=== PATIENT | male | born 1965 | race Two or more races ===

== ENCOUNTER → 2020-09-25 08:40 | Outpatient (BNVA) | payer OTHER, SELFPAY | PROVIDERS: PCP Internal Medicine; Referring Provider Internal Medicine; Visit Provider Physician Assistant | DX: E66.3 Overweight (principal); K90.49 Malabsorption due to intolerance, not elsewhere classified; Z98.84 Bariatric surgery status; Z79.899 Other long term (current) drug therapy; Z68.27 Body mass index [BMI] 27.0-27.9, adult ==

== ENCOUNTER → 2020-10-10 10:44 | Outpatient (BNV) | payer OTHER, SELFPAY | PROVIDERS: PCP Internal Medicine; Visit Provider Internal Medicine Medical Oncology | DX: D61.818 Other pancytopenia (principal) | CPT/HCPCS: 99213; 99214; 99443 ==

== ENCOUNTER → 2020-10-24 08:04 | Outpatient (BNVA) | payer OTHER, SELFPAY | PROVIDERS: Visit Provider Dietitian, Registered | DX: Z76.89 Persons encountering health services in other specified circumstances (principal) ==

== ENCOUNTER 2020-10-31 15:36 | Outpatient (REF) | payer OTHER, SELFPAY ==
[2020-10-31 16:20] LABS: MANUAL DIFF FLAG NO
[2020-10-31 16:31] LABS: Basophils Percent Auto 0.3 % (0-2); Eosinophils Absolute Auto 0.1 X10*3/uL (0.0-0.4); Hematocrit 39.8 % (42-52); Hemoglobin 13.7 g/dl (14.0-18.0); Imm Gran Abs Auto 0.01 X10*3/uL (0.00-0.03); Imm Gran Pct Auto 0.3 % (0.0-0.4); Lymphocytes Absolute Auto 1.2 X10*3/uL (1.2-4.9); Lymphocytes Percent Auto 35.8 % (20-40); Mean Corpuscular HGB Conc 34.4 g/dl (31.0-36.0); Mean Corpuscular Hemoglobin 28.6 pg (27.0-33.0); Mean Corpuscular Volume 83.1 fL (80-98); Mean Platelet Volume 10.2 fL (9.4-12.4); Monocytes Absolute Auto 0.4 X10*3/uL (0.1-1.2); Neutrophils Absolute Auto 1.6 X10*3/uL (2.0-8.3); Neutrophils Percent Auto 48.6 % (45-73); Platelet Count 117 X10*3/uL (160-400); Red Blood Count 4.79 X10*6/uL (4.60-5.80); Red Cell Distribution Width 14.1 % (11.0-16.0); White Blood Count 3.3 X10*3/uL (4.8-10.8)
[2020-10-31 16:56] LABS: Alanine Aminotransferase 24 U/L (0-40); Albumin Level 4.2 g/dL (3.5-5.0); Alkaline Phosphatase 67 U/L (39-117); Anion Gap 12 (12-20); Aspartate Amino Transferase 28 U/L (5-37); Bilirubin Total 1.2 mg/dL (0.0-1.0); Blood Urea Nitrogen 39 mg/dL (9-16); Calcium 9.4 mg/dL (8.4-10.2); Carbon Dioxide 28 mmol/L (22-29); Chloride 102 mmol/L (96-108); Estimated Glomerular Filt Rate > 60; Glucose Random 75 mg/dL (60-115); Potassium 4.1 mmol/l (3.3-5.1); Sodium 138 mmol/L (135-145); Total Protein 7.3 g/dL (6.5-8.0)
[2020-10-31 17:00] LABS: Glucose Urine UA NEG (NEG); Leukocyte Esterase Urine NEG (NEG); Nitrite Urine NEG (NEG); PH 5.5 (5.0-8.0); Urine Blood NEG (NEG); Urine Ketones NEG (NEG); Urine Protein NEG (NEG-TRACE)
[2020-10-31 17:02] LABS: Appearance Urine CLEAR; Color Urine YELLOW
[2020-10-31 17:29] LABS: Erythrocyte Sedimentation Rate 10 MM/HR (0-15)
[2020-11-01 12:12] LABS: Complement C3 112 mg/dL (82-185)
[2020-11-02 13:27] LABS: Anti DNA DS Antibody 6 IU/mL
== END 2020-10-31 15:37 | disposition home or self-care (01) ==
LOC: HO.LAB 15:36
PROVIDERS: PCP Internal Medicine; Visit Provider Student in an Organized Health Care Education/Training Program
DX: M32.9 Systemic lupus erythematosus, unspecified (principal); R76.8 Other specified abnormal immunological findings in serum
CPT/HCPCS: 36415; 80053; 81003; 85025; 85652; 86140; 86160; 86225

== ENCOUNTER → 2020-11-01 15:12 | Outpatient (BNVA) | payer OTHER, SELFPAY | PROVIDERS: PCP Internal Medicine; Visit Provider Student in an Organized Health Care Education/Training Program | DX: Z13.89 Encounter for screening for other disorder (principal) ==

== ENCOUNTER 2020-12-08 10:21 | Outpatient (REF) | payer OTHER, SELFPAY ==
[2020-12-08 10:41] LABS: COVID-19 Test Negative (Negative)
== END 2020-12-08 10:22 | disposition home or self-care (01) ==
LOC: HO.EMPCOV 10:21
PROVIDERS: Visit Provider Internal Medicine
DX: Z20.828 Contact with and (suspected) exposure to other viral communicable diseases (principal)
CPT/HCPCS: 36415; 87635; C9803

== ENCOUNTER → 2020-12-25 10:09 | Outpatient (BNVA) | payer OTHER, SELFPAY | PROVIDERS: PCP Internal Medicine; Visit Provider Urology ==

== ENCOUNTER 2021-02-01 14:30 | Outpatient (REF) | payer OTHER, SELFPAY ==
[2021-02-01 15:16] LABS: Glucose Urine UA NEG (NEG); Leukocyte Esterase Urine NEG (NEG); Nitrite Urine NEG (NEG); PH 5.5 (5.0-8.0); Urine Blood NEG (NEG); Urine Ketones NEG (NEG); Urine Protein NEG (NEG-TRACE)
[2021-02-01 15:18] LABS: Hemoglobin 14.5 g/dl (14.0-18.0); MANUAL DIFF FLAG SCAN; PLT CLUMP 1; Red Cell Distribution Width 13.9 % (11.0-16.0); SCAN SMEAR FLAG 1
[2021-02-01 15:20] LABS: Basophils Percent Auto 0.6 % (0-2); Eosinophils Percent Auto 1.3 % (0-4); Hematocrit 42.1 % (42-52); Lymphocytes Absolute Auto 1.2 X10*3/uL (1.2-4.9); Lymphocytes Percent Auto 36.7 % (20-40); Mean Corpuscular HGB Conc 34.4 g/dl (31.0-36.0); Mean Corpuscular Hemoglobin 28.3 pg (27.0-33.0); Mean Corpuscular Volume 82.2 fL (80-98); Mean Platelet Volume 10.8 fL (9.4-12.4); Monocytes Absolute Auto 0.4 X10*3/uL (0.1-1.2); Monocytes Percent Auto 11.1 % (2-11); Neutrophils Absolute Auto 1.6 X10*3/uL (2.0-8.3); Neutrophils Percent Auto 50.3 % (45-73); Platelet Count 126 X10*3/uL (160-400); Red Blood Count 5.12 X10*6/uL (4.60-5.80); White Blood Count 3.2 X10*3/uL (4.8-10.8)
[2021-02-01 15:20] LABS: Appearance Urine CLEAR; Color Urine YELLOW
[2021-02-01 15:30] LABS: Bacteria Urine TRACE /LPF; RBC Urine 0 /HPF (0); Squamous Epithelial Cell Urine TRACE /LPF; WBC Urine 0 /HPF (0-4)
[2021-02-01 16:06] LABS: Alanine Aminotransferase 22 U/L (0-40); Albumin Level 4.5 g/dL (3.5-5.0); Alkaline Phosphatase 74 U/L (39-117); Anion Gap 13 (12-20); Aspartate Amino Transferase 28 U/L (5-37); Bilirubin Total 1.8 mg/dL (0.0-1.0); Blood Urea Nitrogen 28 mg/dL (9-16); C Reactive Protein 0.14 mg/dL (< or = 0.50); Calcium 9.9 mg/dL (8.4-10.2); Carbon Dioxide 32 mmol/L (22-29); Chloride 97 mmol/L (96-108); Estimated Glomerular Filt Rate > 60; Glucose Random 73 mg/dL (60-115); Potassium 4.5 mmol/L (3.3-5.1); Sodium 137 mmol/L (135-145); Total Protein 7.8 g/dL (6.5-8.0)
[2021-02-01 16:21] LABS: Erythrocyte Sedimentation Rate 11 MM/HR (0-15)
[2021-02-02 12:17] LABS: Complement C3 119 mg/dL (82-185)
[2021-02-02 12:42] LABS: Anti DNA DS Antibody 6 IU/mL
== END 2021-02-01 14:31 | disposition home or self-care (01) ==
LOC: HO.LAB 14:30
PROVIDERS: PCP Internal Medicine; Visit Provider Student in an Organized Health Care Education/Training Program
DX: M32.9 Systemic lupus erythematosus, unspecified (principal)
CPT/HCPCS: 36415; 80053; 81001; 85025; 85652; 86140; 86160; 86225

== ENCOUNTER → 2021-02-02 15:10 | Outpatient (BNVA) | payer OTHER, SELFPAY | PROVIDERS: Visit Provider Student in an Organized Health Care Education/Training Program ==

== ENCOUNTER 2021-04-10 13:54 | Outpatient (REF) | payer OTHER, SELFPAY ==
[2021-04-10 14:18] LABS: COVID-19 Test Negative (Negative)
== END 2021-04-10 13:55 | disposition home or self-care (01) ==
LOC: HO.EMPCOV 13:54
PROVIDERS: Visit Provider Internal Medicine
DX: Z20.822 Contact with and (suspected) exposure to COVID-19 (principal)
CPT/HCPCS: 36415; 87635; C9803

== ENCOUNTER 2021-05-02 06:42 | Outpatient (REF) | payer OTHER, SELFPAY ==
[2021-05-02 07:56] LABS: Basophils Percent Auto 0.5 % (0-2); Hemoglobin 14.4 g/dl (14.0-18.0); MANUAL DIFF FLAG SCAN; PLT CLUMP 1; SCAN SMEAR FLAG 1
[2021-05-02 07:59] LABS: Eosinophils Absolute Auto 0.1 X10*3/uL (0.0-0.4); Eosinophils Percent Auto 4.6 % (0-4); Hematocrit 42.1 % (42-52); Lymphocytes Absolute Auto 0.9 X10*3/uL (1.2-4.9); Lymphocytes Percent Auto 40.8 % (20-40); Mean Corpuscular HGB Conc 34.2 g/dl (31.0-36.0); Mean Corpuscular Hemoglobin 28.6 pg (27.0-33.0); Mean Corpuscular Volume 83.5 fL (80-98); Mean Platelet Volume 10.8 fL (9.4-12.4); Monocytes Absolute Auto 0.3 X10*3/uL (0.1-1.2); Monocytes Percent Auto 11.9 % (2-11); Neutrophils Absolute Auto 0.9 X10*3/uL (2.0-8.3); Neutrophils Percent Auto 42.2 % (45-73); Platelet Count 115 X10*3/uL (160-400); Red Blood Count 5.04 X10*6/uL (4.60-5.80); Red Cell Distribution Width 14.2 % (11.0-16.0)
[2021-05-02 08:13] LABS: White Blood Count 2.2 X10*3/uL (4.8-10.8)
[2021-05-02 08:17] LABS: Estimated Average Glucose 85 mg/dL; Hemoglobin A1c % 4.6 %
[2021-05-02 08:45] LABS: Alanine Aminotransferase 18 U/L (0-40); Albumin Level 4.3 g/dL (3.5-5.0); Alkaline Phosphatase 72 U/L (39-117); Anion Gap 12 (12-20); Aspartate Amino Transferase 28 U/L (5-37); Bilirubin Total 1.8 mg/dL (0.0-1.0); Blood Urea Nitrogen 21 mg/dL (9-16); C Reactive Protein 0.11 mg/dL (< or = 0.50); Calcium 10.3 mg/dL (8.4-10.2); Carbon Dioxide 30 mmol/L (22-29); Chloride 102 mmol/L (96-108); Cholesterol 151 mg/dL; Estimated Glomerular Filt Rate > 60; Glucose Random 70 mg/dL (60-115); HDL Cholesterol 47 mg/dL; Iron 89 mcg/dL (45-160); LDL Cholesterol Calculated 90 mg/dl; Percent Iron Saturation 29 % (15-50); Potassium 4.4 mmol/L (3.3-5.1); Sodium 140 mmol/L (135-145); Total Iron Binding Capacity 310 mcg/dL (228-428); Total Protein 7.4 g/dL (6.5-8.0); Triglycerides 70 mg/dL; Unsaturated Iron Binding 221 ug/dL
[2021-05-02 09:10] LABS: Ferritin 90 ng/mL (20-250); TSH reflex Free T4 0.75 uIU/mL (0.32-4.0); Vitamin D 25-OH Total 55.7 ng/mL (>30)
[2021-05-02 10:00] LABS: SLIDE REVIEW VERIFIED
[2021-05-02 10:06] LABS: Folate 16.4 ng/mL (> or = 4.0); Vitamin B12 1038 pg/mL (200-900)
[2021-05-03 13:27] LABS: PTHI 32 pg/mL (14-64)
[2021-05-03 17:51] LABS: Insulin Level Total 15.9 uIU/mL
[2021-05-04 23:01] LABS: Zinc 74 mcg/dL (60-130)
[2021-05-07 03:47] LABS: Vitamin A 42 mcg/dL (38-98)
[2021-05-07 06:11] LABS: Vitamin B1 7 nmol/L (8-30)
== END 2021-05-02 06:43 | disposition home or self-care (01) ==
LOC: HO.LAB 06:42
PROVIDERS: PCP Internal Medicine; Visit Provider Physician Assistant
DX: Z98.84 Bariatric surgery status (principal)
CPT/HCPCS: 36415; 80053; 80061; 82306; 82607; 82728; 82746; 83036; 83525; 83540; 83970; 84425; 84443; 84590; 84630; 85025; 86140

== ENCOUNTER → 2021-05-03 08:14 | Outpatient (BNVA) | payer OTHER, SELFPAY | PROVIDERS: PCP Internal Medicine; Visit Provider Physician Assistant | DX: Z98.84 Bariatric surgery status (principal) ==

== ENCOUNTER 2021-06-11 13:06 | Outpatient (REF) | payer OTHER, SELFPAY ==
[2021-06-11 14:12] LABS: MANUAL DIFF FLAG NO
[2021-06-11 14:16] LABS: Basophils Percent Auto 0.4 % (0-2); Eosinophils Percent Auto 0.8 % (0-4); Hemoglobin 13.8 g/dl (14.0-18.0); Imm Gran Abs Auto 0.01 X10*3/uL (0.00-0.03); Imm Gran Pct Auto 0.4 % (0.0-0.4); Lymphocytes Absolute Auto 0.9 X10*3/uL (1.2-4.9); Lymphocytes Percent Auto 35.5 % (20-40); Mean Corpuscular HGB Conc 34.5 g/dl (31.0-36.0); Mean Corpuscular Hemoglobin 28.8 pg (27.0-33.0); Mean Corpuscular Volume 83.3 fL (80-98); Mean Platelet Volume 9.7 fL (9.4-12.4); Monocytes Absolute Auto 0.3 X10*3/uL (0.1-1.2); Monocytes Percent Auto 11.3 % (2-11); Neutrophils Absolute Auto 1.4 X10*3/uL (2.0-8.3); Neutrophils Percent Auto 51.6 % (45-73); Platelet Count 131 X10*3/uL (160-400); Red Cell Distribution Width 14.3 % (11.0-16.0); White Blood Count 2.7 X10*3/uL (4.8-10.8)
[2021-06-11 14:35] LABS: Alanine Aminotransferase 14 U/L (0-40); Albumin Level 4.3 g/dL (3.5-5.0); Alkaline Phosphatase 83 U/L (39-117); Anion Gap 12 (12-20); Aspartate Amino Transferase 21 U/L (5-37); Bilirubin Total 1.5 mg/dL (0.0-1.0); Blood Urea Nitrogen 23 mg/dL (9-16); C Reactive Protein 0.08 mg/dL (< or = 0.50); Calcium 9.9 mg/dL (8.4-10.2); Carbon Dioxide 28 mmol/L (22-29); Chloride 102 mmol/L (96-108); Estimated Glomerular Filt Rate > 60; Glucose Random 86 mg/dL (60-115); Potassium 4.7 mmol/L (3.3-5.1); Sodium 137 mmol/L (135-145); Total Protein 7.6 g/dL (6.5-8.0)
[2021-06-11 14:49] LABS: Glucose Urine UA NEG (NEG); Leukocyte Esterase Urine NEG (NEG); Nitrite Urine NEG (NEG); PH 5.5 (5.0-8.0); Urine Blood NEG (NEG); Urine Ketones NEG (NEG); Urine Protein NEG (NEG-TRACE)
[2021-06-11 14:52] LABS: Appearance Urine CLEAR; Color Urine YELLOW; Erythrocyte Sedimentation Rate 11 MM/HR (0-15)
[2021-06-11 15:45] LABS: RBC Urine 0 /HPF (0); WBC Urine 0 /HPF (0-4)
[2021-06-12 14:41] LABS: Complement C3 81 mg/dL (82-185)
[2021-06-13 14:56] LABS: Anti DNA DS Antibody 6 IU/mL
== END 2021-06-11 13:07 | disposition home or self-care (01) ==
LOC: HO.LAB 13:06
PROVIDERS: PCP Internal Medicine; Visit Provider Student in an Organized Health Care Education/Training Program
DX: M32.9 Systemic lupus erythematosus, unspecified (principal)
CPT/HCPCS: 36415; 80053; 81001; 85025; 85652; 86140; 86160; 86225

== ENCOUNTER → 2021-06-14 15:58 | Outpatient (BNVA) | payer OTHER, SELFPAY | PROVIDERS: PCP Internal Medicine; Visit Provider Student in an Organized Health Care Education/Training Program ==

== ENCOUNTER 2021-10-15 07:12 | Outpatient (REF) | payer OTHER, SELFPAY ==
[2021-10-15 07:30] LABS: MANUAL DIFF FLAG NO
[2021-10-15 08:05] LABS: Basophils Percent Auto 0.4 % (0-2); Eosinophils Percent Auto 1.5 % (0-4); Hematocrit 42.1 % (42.0-52.0); Hemoglobin 14.3 g/dl (14.0-18.0); Lymphocytes Absolute Auto 0.9 X10*3/uL (1.2-4.9); Lymphocytes Percent Auto 35.5 % (20-40); Mean Corpuscular Hemoglobin 27.9 pg (27.0-33.0); Mean Corpuscular Volume 82.2 fL (80.0-98.0); Monocytes Absolute Auto 0.3 X10*3/uL (0.1-1.2); Monocytes Percent Auto 12.8 % (2-11); Neutrophils Absolute Auto 1.3 x10*3/uL (2.0-8.3); Neutrophils Percent Auto 49.8 % (45-73); Platelet Count 131 X10*3/uL (160-400); Red Blood Count 5.12 X10*6/uL (4.60-5.80); Red Cell Distribution Width 13.4 % (11.0-16.0); White Blood Count 2.7 X10*3/uL (4.8-10.8)
[2021-10-15 08:34] LABS: Alanine Aminotransferase 13 U/L (0-40); Albumin Level 4.2 g/dL (3.5-5.0); Alkaline Phosphatase 73 U/L (39-117); Anion Gap 9 (12-20); Aspartate Amino Transferase 20 U/L (5-37); Bilirubin Total 1.3 mg/dL (0.0-1.0); Blood Urea Nitrogen 33 mg/dL (9-16); Calcium 9.6 mg/dL (8.4-10.2); Carbon Dioxide 31 mmol/L (22-29); Chloride 101 mmol/L (96-108); Cholesterol 142 mg/dL; Estimated Glomerular Filt Rate > 60; Glucose Random 55 mg/dL (60-115); HDL Cholesterol 46 mg/dL; LDL Cholesterol Calculated 80 mg/dl; Potassium 4.5 mmol/L (3.3-5.1); Sodium 136 mmol/L (135-145); Total Protein 7.3 g/dL (6.5-8.0); Triglycerides 80 mg/dL
[2021-10-15 08:46] LABS: Appearance Urine CLEAR; Color Urine YELLOW; Glucose Urine UA NEG (NEG); Leukocyte Esterase Urine TRACE (NEG); Nitrite Urine NEG (NEG); PH 5.5 (5.0-8.0); Urine Blood NEG (NEG); Urine Ketones NEG (NEG); Urine Protein NEG (NEG-TRACE)
[2021-10-15 08:57] LABS: RBC Urine 0 /HPF (0); Squamous Epithelial Cell Urine TRACE /LPF; WBC Urine 0-2 /HPF (0-4)
[2021-10-15 09:05] LABS: Erythrocyte Sedimentation Rate 8 MM/HR (0-15)
[2021-10-16 11:45] LABS: Complement C3 114 mg/dL (82-185)
[2021-10-20 09:07] LABS: Anti DNA DS Antibody 7 IU/mL
[2021-10-20 13:31] LABS: Vitamin D 25-OH, D2 9 ng/mL; Vitamin D 25-OH, D3 30 ng/mL; Vitamin D 25-OH, Total 39 ng/mL (30-100)
== END 2021-10-15 07:13 | disposition home or self-care (01) ==
LOC: HO.LAB 07:12
PROVIDERS: Student in an Organized Health Care Education/Training Program; PCP Internal Medicine; Visit Provider Internal Medicine Medical Oncology
DX: M32.9 Systemic lupus erythematosus, unspecified (principal); E78.5 Hyperlipidemia, unspecified; E55.9 Vitamin D deficiency, unspecified
CPT/HCPCS: 36415; 80053; 80061; 81001; 82306; 85025; 85652; 86140; 86160; 86225

== ENCOUNTER 2021-10-16 09:36 | Outpatient (REF) | payer OTHER, SELFPAY ==
[2021-10-16 11:27] LABS: Alanine Aminotransferase 14 U/L (0-40); Albumin Level 4.1 g/dL (3.5-5.0); Alkaline Phosphatase 74 U/L (39-117); Anion Gap 11 (12-20); Aspartate Amino Transferase 21 U/L (5-37); Bilirubin Total 1.2 mg/dL (0.0-1.0); Blood Urea Nitrogen 27 mg/dL (9-16); Calcium 9.4 mg/dL (8.4-10.2); Carbon Dioxide 31 mmol/L (22-29); Chloride 100 mmol/L (96-108); Estimated Glomerular Filt Rate > 60; Glucose Fasting 66 mg/dL (60-99); Potassium 4.7 mmol/L (3.3-5.1); Sodium 137 mmol/L (135-145); Total Protein 7.3 g/dL (6.5-8.0)
== END 2021-10-16 09:37 | disposition home or self-care (01) ==
LOC: HO.LAB 09:36
PROVIDERS: PCP Internal Medicine; Visit Provider Internal Medicine
DX: E16.2 Hypoglycemia, unspecified (principal); R82.998 Other abnormal findings in urine
CPT/HCPCS: 36415; 80053; 87086

== ENCOUNTER 2022-04-16 13:40 | Outpatient (REF) | payer OTHER, SELFPAY ==
[2022-04-16 14:34] LABS: Baso%MD 0.3 %; Eos%MD 1.7 %; Hematocrit 38.2 % (42.0-52.0); Hemoglobin 13.3 g/dl (14.0-18.0); IG%MD 0.3 %; Mean Corpuscular HGB Conc 34.8 g/dl (31.0-36.0); Mean Corpuscular Hemoglobin 27.9 pg (27.0-33.0); Mean Corpuscular Volume 80.3 fL (80.0-98.0); Mean Platelet Volume 9.6 fL (9.4-12.4); Mono%MD 14.1 %; Neut%MD 45.6 %; Platelet Count 115 X10*3/uL (160-400); Red Blood Count 4.76 X10*6/uL (4.60-5.80); Red Cell Distribution Width 14.8 % (11.0-16.0); White Blood Count 3.6 X10*3/uL (4.8-10.8)
[2022-04-16 14:59] LABS: Alanine Aminotransferase 19 U/L (0-40); Albumin Level 4.1 g/dL (3.5-5.0); Alkaline Phosphatase 65 U/L (39-117); Anion Gap 10 (12-20); Aspartate Amino Transferase 25 U/L (5-37); Blood Urea Nitrogen 25 mg/dL (9-16); Calcium 9.1 mg/dL (8.4-10.2); Carbon Dioxide 28 mmol/L (22-29); Chloride 105 mmol/L (96-108); Estimated Glomerular Filt Rate > 60; Glucose Random 65 mg/dL (60-115); Potassium 4.5 mmol/L (3.3-5.1); Sodium 138 mmol/L (135-145); Total Protein 7.4 g/dL (6.5-8.0)
[2022-04-16 16:13] LABS: Band Neutrophils Percent 3 % (3-5); Lymphocytes Absolute Manual 1.3 X10*3/uL (1.2-4.9); Lymphocytes Percent Manual 36 % (20-40); Monocytes Absolute Manual 0.5 X10*3/uL (0.1-1.2); Monocytes Percent Manual 13 % (2-11); Neutrophils Absolute Manual 1.8 X10*3/uL (2.0-8.3); Neutrophils Percent Manual 48 % (45-73)
[2022-04-16 16:17] LABS: Giant Platelet PRESENT; Platelet Estimate SLIGHTLY DECREASED (NORMAL); Platelet Morphology Comment NOTED; RBC Morphology NORMAL
== END 2022-04-16 13:41 | disposition home or self-care (01) ==
LOC: HO.LAB 13:40
PROVIDERS: PCP Internal Medicine; Visit Provider Internal Medicine Medical Oncology
DX: D61.818 Other pancytopenia (principal)
CPT/HCPCS: 36415; 80053; 85007; 85027

== ENCOUNTER → 2022-08-28 14:16 | Outpatient (BNVA) | payer OTHER, SELFPAY | PROVIDERS: PCP Internal Medicine; Visit Provider Urology | DX: N40.1 Benign prostatic hyperplasia with lower urinary tract symptoms (principal); R39.12 Poor urinary stream | CPT/HCPCS: 51798 ==

== ENCOUNTER 2022-11-21 07:58 | Outpatient (REF) | payer OTHER, SELFPAY ==
[2022-11-21 09:36] LABS: Alanine Aminotransferase 13 U/L (0-40); Albumin Level 4.1 g/dL (3.5-5.0); Alkaline Phosphatase 67 U/L (39-117); Anion Gap 12 (12-20); Aspartate Amino Transferase 22 U/L (5-37); Bilirubin Total 1.1 mg/dL (0.0-1.0); Blood Urea Nitrogen 19 mg/dL (9-16); Calcium 9.3 mg/dL (8.4-10.2); Carbon Dioxide 30 mmol/L (22-29); Chloride 102 mmol/L (96-108); Cholesterol 146 mg/dL; Estimated Glomerular Filt Rate > 60; Glucose Fasting 73 mg/dL (60-99); HDL Cholesterol 46 mg/dL; LDL Cholesterol Calculated 93 mg/dl; Potassium 4.5 mmol/L (3.3-5.1); Sodium 139 mmol/L (135-145); Total Protein 6.9 g/dL (6.5-8.0); Triglycerides 38 mg/dL
== END 2022-11-21 07:59 | disposition home or self-care (01) ==
LOC: HO.LAB 07:58
PROVIDERS: PCP Internal Medicine; Visit Provider Internal Medicine
DX: M32.9 Systemic lupus erythematosus, unspecified (principal); E78.5 Hyperlipidemia, unspecified
CPT/HCPCS: 36415; 80053; 80061

== ENCOUNTER → 2022-11-27 13:35 | Outpatient (BNVA) | payer OTHER, SELFPAY | PROVIDERS: PCP Internal Medicine; Visit Provider Urology | DX: N52.9 Male erectile dysfunction, unspecified (principal); N40.1 Benign prostatic hyperplasia with lower urinary tract symptoms | CPT/HCPCS: 51798 ==

== ENCOUNTER 2022-12-06 16:38 | Outpatient (REF) | payer OTHER, SELFPAY ==
[2022-12-06 18:07] LABS: Vitamin D 25-OH Total 45.4 ng/mL (>30)
[2022-12-06 18:25] LABS: Folate 9.4 ng/mL (> or = 4.0)
[2022-12-06 18:40] LABS: Vitamin B12 > 2000 pg/mL (200-900)
[2022-12-11 16:42] LABS: Vitamin A 48 mcg/dL (38-98)
[2022-12-13 16:03] LABS: Testosterone, Free 71.1 pg/mL (35.0-155.0); Testosterone, Total 846 ng/dL (250-1100)
== END 2022-12-06 16:39 | disposition home or self-care (01) ==
LOC: HO.LAB 16:38
PROVIDERS: PCP Internal Medicine; Visit Provider Internal Medicine
DX: E55.9 Vitamin D deficiency, unspecified (principal); E29.1 Testicular hypofunction; E53.8 Deficiency of other specified B group vitamins; E50.9 Vitamin A deficiency, unspecified
CPT/HCPCS: 36415; 82306; 82607; 82746; 84402; 84403; 84425; 84590

== ENCOUNTER 2022-12-07 09:22 | Outpatient (REF) | payer OTHER, SELFPAY ==
[2022-12-07 10:50] LABS: Prostate Specific Antigen 0.29 ng/mL (<0.05-4.0)
[2022-12-11 15:44] LABS: Vitamin B1 7 nmol/L (8-30)
[2022-12-15 16:28] LABS: Testosterone, Total 907 ng/dL (250-1100)
== END 2022-12-07 09:23 | disposition home or self-care (01) ==
LOC: HO.LAB 09:22
PROVIDERS: Urology; Visit Provider Internal Medicine
DX: Z12.5 Encounter for screening for malignant neoplasm of prostate (principal); E51.9 Thiamine deficiency, unspecified; N52.9 Male erectile dysfunction, unspecified
CPT/HCPCS: 36415; 84153; 84403; 84425

== ENCOUNTER → 2023-02-26 08:45 | Outpatient (BNVA) | payer OTHER, SELFPAY | PROVIDERS: PCP Internal Medicine; Visit Provider Urology | DX: N40.1 Benign prostatic hyperplasia with lower urinary tract symptoms (principal); N52.9 Male erectile dysfunction, unspecified | CPT/HCPCS: 51798 ==

== ENCOUNTER 2023-05-07 08:07 | Emergency (ER) | payer OTHER, SELFPAY ==
--- NOTE | ~2023-05-07 | XR_ITS ---
EXAMINATION: XR SHOULDER, RIGHT CLINICAL INFORMATION: Fall onto right shoulder COMPARISON: Right shoulder 08/21/2018 TECHNIQUE: Four views of the right shoulder. FINDINGS: There is some new cystic changes in the greater trochanter compared to the 2018 study which may be due to chronic bursitis. No acute finding is present. No fracture. Glenohumeral and acromioclavicular alignment is anatomic with normal joint space. No abnormal soft tissue calcifications. XR/XR shoulder RT min 2V IMPRESSION: No evidence of an acute injury. Some new cystic changes in the greater trochanter may be due to chronic bursitis.
[2023-05-07 08:34] VITALS: BP 107/62; PULSE 73; RESP 16; TEMP 36.3; O2SAT 99; BMI 33.0
--- NOTE | 2023-05-07 09:51 | ED.EXTPRO ---
HPI - Extremity Problem General Chief complaint: Extremity Injury, Upper Stated complaint: R shoulder pain/ fell / Time Seen by Provider: 05/07/23 09:51 Source: patient Mode of arrival: ambulatory Limitations: no limitations History of Present Illness HPI Narrative: Patient is a 57 year old assigned male at with a history of lupus presenting to the emergency department today with right shoulder pain. Patient states that he fell 3 days ago off of his bed and hit his right shoulder on the ground. Patient denies any head strike, loss of consciousness, dizziness, lightheadedness, abdominal pain, nausea, vomiting, fever, chills, blurry vision, double vision, loss of vision, chest pain, difficulty breathing, shortness of breath, back pain, night sweats, pain with urination, increased urinary frequency, increased urinary urgency, blood in his urine or stool, syncope or a near syncopal episode, bowel incontinence, bladder incontinence, bowel retention, bladder retention, or any other complaints at this time. MD Complaint: extremity pain Onset (ago): day(s) (3) Pain Consistency: constant Location: right and upper extremity Severity scale (1-10): 3 Quality: aching and dull Radiation: none Relieving factors: nothing Exacerbating factors: range of motion Associated symptoms: denies other symptoms Related Data Previous Rx's Medication Instructions Recorded hydroxychloroquine 200 mg tablet 200 mg PO BID #60 tabs 05/08/21 calcium citrate 315 mg 2 tab PO BID #120 tabs 09/20/21 calcium-vitamin D3 6.25 mcg (250 unit) tablet tadalafil 20 mg tablet 20 mg PO DAILY PRN sexual activity 10/04/22 30 days #30 tabs thiamine HCl (vitamin B1) 100 mg 50 mg PO DAILY 90 days #45 tabs 12/11/22 tablet tadalafil 5 mg tablet 10 mg PO DAILY sexual activity 90 02/26/23 days #180 tabs tamsulosin 0.4 mg capsule 0.4 mg PO BEDTIME 90 days #90 caps 02/26/23 naproxen 500 mg tablet 500 mg PO BID 7 days #14 tabs 05/07/23 prednisone 20 mg tablet 20 mg PO DAILY 7 days #7 tabs 05/07/23 Allergies Allergy/AdvReac Type Severity Reaction Status Date / Time No Known Allergies Allergy Verified 04/30/23 14:11 [No Known Allergies*] Review of Systems Constitutional: Constitutional: Reports no additional constitutional complaints, Denies chills, Denies fever(s) and Denies night sweats Eyes: Eyes: Reports no additional eye complaints, Denies blurry vision, Denies change in vision, Denies diplopia, Denies eye discharge, Denies loss of vision and Denies eye pain ENT: Denies dizziness Cardiovascular: Cardiovascular: Reports no additional cardiovascular complaints, Denies chest pain, Denies lightheadedness, Denies Loss of Consciousness and Denies dyspnea Respiratory: Respiratory: Reports no additional respiratory complaints and Denies dyspnea Gastrointestinal: Gastrointestinal: Reports no additional gastrointestinal complaints, Denies abdominal pain, Denies melena, Denies hematochezia, Denies change in bowel habits and Denies change in stool character Genitourinary: Genitourinary: Reports no additional male genitourinary complaints, Denies hematuria, Denies oliguria, Denies difficulty urinating, Denies dysuria, Denies urinary frequency, Denies urinary hesitancy, Denies urinary incontinence and Denies urinary urgency Musculoskeletal: Musculoskeletal: Reports no additional musculoskeletal complaints, Denies numbness and Denies tingling Comments: right shoulder pain Neurologic: Denies dizziness, Denies loss of vision, Denies numbness and Denies tingling Psychiatric: Psychiatric: Reports no additional psychiatric complaints Endocrine: Endocrine: Reports no additional endocrine complaints Hematologic/Lymphatic: Hematologic/Lymphatic: Reports no additional hematologic/lymphatic complaints Allergic/Immunologic: Allergic/Immunologic: Reports no additional allergic/immunologic complaints PMF Past Medical History Attestation statement: The following information was validated with the patient. Source: old records reviewed and nursing notes reviewed Medical History Arthritis Erectile dysfunction Hydrocele Hydrocele in adult Hypertension Hypoglycemia Hypovitaminosis D Lupus Lupus Malabsorption due to intolerance, not elsewhere classified Morbid obesity Overweight (BMI 25.0-29.9) Physical exam Steatosis, liver Urine WBC increased Surgical History H/O adenoidectomy History of colonoscopy Hx of tonsillectomy S/P laparoscopic sleeve gastrectomy S/P urological surgery Family History Family History Father No problems noted. Mother No problems noted. Maternal Aunt No problems noted. Brother No problems noted. Sister No problems noted. Social History Social History Housing: Apartment Alcohol intake: never Patient Tobacco Use Status: Never used Tobacco e-Cigarette/Vaping Use: Never Used Second Hand Smoke Exposure: No Advance Directives: No service: No Current occupational status: unemployed Cognitive needs: No Hearing needs: No Vision needs: No Physical Exam Vital Signs: Vital Signs: Last Vital Signs Temp 96.7 F L 05/07/23 10:01 Pulse 61 05/07/23 10:01 Resp 18 05/07/23 10:01 BP 101/60 05/07/23 10:01 Pulse Ox 99 05/07/23 10:01 O2 Del Method Room Air 05/07/23 10:01 BMI result Body Mass Index 33.0 Const: General: cooperative, no acute distress, alert and awake Nutritional Appearance: well nourished Orientation/consciousness: patient oriented x3 Limitations: no limitations HEENT: Head: Yes normal to inspection and Yes atraumatic Ears: hearing grossly normal bilaterally and external ears normal General nose exam: Normal external nose present, no nasal discharge noted and no epistaxis Face and sinus: Yes normal facial exam, No abrasion and No laceration Mouth: Normal oral and palatal mucosa present, no drooling and no muffled voice Eyes: General: appearance normal, both eyes and all related structures Periorbital: periorbital findings normal Eyelids: Yes eyelids normal Conjunctivae: conjunctivae normal Pupils: Equal, round and reactive pupils present EOM: EOMs intact bilaterally Neck: Neck: Yes normal visual inspection, Yes full ROM and Yes no lymphadenopathy Chest: Chest palpation & inspection: normal inspection of the chest Resp: Effort & Inspection: normal respiratory effort and able to speak in complete sentences Auscultation: clear to auscultation bilaterally Cardio: Rate: regular rate Rhythm: regular rhythm GI: Inspection: Yes normal to inspection Neuro: General: patient oriented x3 and moves all extremities Cranial nerves: Yes Equal, round and reactive pupils present Cognition (Neuro): normal cognition Motor exam (neuro): 5/5 motor strength present throughout Sensory Exam: Normal double simultaneous stimulation for sensation Coordination: [id number] test normal Extrem: Other: pain right right shoulder ROM General: Yes normal to inspection, Yes full ROM and Yes capillary refill normal Psych: Appearance: grossly normal Mental Status: mental status grossly normal Affect: normal affect Attitude: cooperative Thought process: Normal thought process present Thought content: Normal thought content present Insight: Good insight present (Psych) Medical Decision Making Medical Decision Making MDM Narrative: Patient is a 57 year old assigned male at with a history of lupus presenting to the emergency department today with right shoulder pain. Patient's physical exam showed pain with right shoulder ROM but was otherwise unremarkable. Patient's right shoulder x-ray showed no acute alvarado process. I explained my physical exam findings as well as all test results to the patient. I answered all questions asked by the patient. Patient received PO Prednisone and IM Toradol which he stated helped his symptoms significantly. I stressed the importance of the patient taking his medication as prescribed. I stressed the importance of the patient following up with his primary care provider and an orthopedic provider. I stressed the importance of the patient returning to the emergency department immediately if his symptoms were to worsen or if he were to develop any dizziness, shortness of breath, difficulty breathing, chest pain, blurry vision, loss of vision, nausea, vomiting, abdominal pain, fever, chills, back pain, or any other complaints. Patient verbalized agreement and understanding with this treatment plan and discharge. Differential Diagnosis Differential Diagnoses: The differential diagnosis associated with the presentation includes right shoulder pain, right shoulder injury Admission/Observation Consideration of admission/observation: Escalation of care including admission/observation considered Patient would have been admitted to the hospital had his work up had any findings where hospital admission was appropriate. Independent Interpretation I performed an independent interpretation of an: Plain X-Ray Interpretation: My interpretation is in agreement with the radiologist's impression of this imaging study. EXAMINATION: XR SHOULDER, RIGHT CLINICAL INFORMATION: Fall onto right shoulder? COMPARISON: Right shoulder 08/21/2018? TECHNIQUE: Four views of the right shoulder. FINDINGS: There is some new cystic changes in the greater trochanter compared to the 2018 study which may be due to chronic bursitis. No acute finding is present. No fracture. Glenohumeral and acromioclavicular alignment is anatomic with normal joint space. No abnormal soft tissue calcifications.? XR/XR shoulder RT min 2V IMPRESSION: No evidence of an acute injury. Some new cystic changes in the greater trochanter may be due to chronic bursitis. Dictated By: Richardson Esteban MD Signed By: Electronically signed by Richardson Esteban MD 05/07/23 0916 Chronic Conditions Patient?s care impacted by: Other (lupus) Discharge Plan Discharge Clinical Impression: Acute shoulder pain Patient Disposition: Home, Self-Care Instructions: Shoulder Pain (ED) Additional Instructions: Follow up with your primary care provider and an orthopedic provider. Return to the emergency department immediately if your symptoms worsen or if you develop any dizziness, shortness of breath, difficulty breathing, chest pain, blurry vision, loss of vision, nausea, vomiting, abdominal pain, fever, chills, back pain, or any other complaints. Prescriptions: New prednisone 20 mg tablet 20 mg PO DAILY 7 Days Qty: 7 0RF naproxen 500 mg tablet 500 mg PO BID 7 Days Qty: 14 0RF No Action hydroxychloroquine 200 mg tablet 200 mg PO BID Qty: 60 5RF calcium citrate-vitamin D3 315 mg-6.25 mcg (250 unit) tablet 2 tab PO BID Qty: 120 11RF tadalafil 20 mg tablet 20 mg PO DAILY PRN (Reason: sexual activity) 30 Days Qty: 30 6RF thiamine HCl (vitamin B1) 100 mg tablet 50 mg PO DAILY 90 Days Qty: 45 1RF tamsulosin 0.4 mg capsule 0.4 mg PO BEDTIME 90 Days Qty: 90 1RF tadalafil 5 mg tablet 10 mg PO DAILY 90 Days Qty: 180 0RF Rx Instructions: [facility] [id number] Referrals: [facility] [place] [facility] [Provider Group] (Call to establish and follow up with an orthopedic provider. ) Regine Webber FNP [Primary Care Provider] - Stand Alone Forms: Work/School Release Interventions: ED Discharge Assessment Last Done: 05/07/23 10:34 Discharge Date/Time: 05/07/23 10:35 Print Language: Pakistani
[2023-05-07 10:01] VITALS: BP 101/60; PULSE 61; RESP 18; TEMP 35.9; O2SAT 99
== END 2023-05-07 10:35 | disposition home or self-care (01) ==
PROVIDERS: Emergency Provider Internal Medicine; PCP Nurse Practitioner Family
DX: M25.511 Pain in right shoulder (principal)
CPT/HCPCS: 73030; 99283

== ENCOUNTER → 2023-05-29 09:54 | Outpatient (BNVA) | payer OTHER, SELFPAY | PROVIDERS: Visit Provider Urology | DX: N52.9 Male erectile dysfunction, unspecified (principal); R39.12 Poor urinary stream | CPT/HCPCS: 51798 ==

== ENCOUNTER → 2023-06-06 08:35 | Outpatient (BNVA) | payer OTHER, SELFPAY | PROVIDERS: PCP Nurse Practitioner Family; Visit Provider Nurse Practitioner Family ==

== ENCOUNTER 2023-08-26 08:18 | Emergency (ER) | payer OTHER, SELFPAY ==
--- NOTE | ~2023-08-26 | XR_ITS ---
EXAMINATION: XR LUMBOSACRAL SPINE CLINICAL INFORMATION: Low back pain with sciatica COMPARISON: 08/25/2017 TECHNIQUE: Three views of the lumbosacral spine. FINDINGS: Vertebral body height is preserved. There are 5 mm of anterolisthesis of L4 upon 5 and 6 mm of anterolisthesis of L5 upon S1. Advanced degenerative disc disease is present throughout the lumbar spine with disc space narrowing and endplate sclerosis at all levels. Prominent anterior bridging enthesophytes have increased most notably at L5-S1. Bridging anterior osteophytes are present at L1-L2, T12-L1 and T10-T11. Posterior element hypertrophic and proliferative changes are evident throughout the lumbar spine, also increased since 2017. There are multiple surgical clips in the left upper quadrant of the abdomen. XR/XR lumbar spine 2-3V IMPRESSION: Worsening degenerative disc disease throughout the lumbar spine since 2017, noting anterolisthesis at L4-L5 and L5-S1, increasing posterior element proliferative disease, and anterior flowing osteophytes.
[2023-08-26 08:19] VITALS: BP 118/75; PULSE 76; RESP 18; TEMP 36.7; O2SAT 97; BMI 28.7
--- NOTE | 2023-08-26 08:51 | ED.BACK ---
HPI - Back Pain/Injury General Chief Complaint: Back Pain/Injury Stated Complaint: Sciatic pain Time Seen by Provider: 08/26/23 08:30 Source: patient Mode of arrival: ambulatory Limitations: no limitations History of Present Illness HPI Narrative: patient with a history of sciatica on his left side radiating down his left leg, now with the same. Denies injury. He just woke up that day, his pmd does not know about the problems Related Data Previous Rx's Medication Instructions Recorded hydroxychloroquine 200 mg tablet 200 mg PO BID #60 tabs 05/08/21 calcium citrate 315 mg 2 tab PO BID #120 tabs 09/20/21 calcium-vitamin D3 6.25 mcg (250 unit) tablet thiamine HCl (vitamin B1) 100 mg 50 mg (1/2 x 100 mg) PO DAILY 90 12/11/22 tablet days #45 tabs tamsulosin 0.4 mg capsule 0.4 mg PO BEDTIME 90 days #90 caps 02/26/23 naproxen 500 mg tablet 500 mg PO BID 7 days #14 tabs 05/07/23 prednisone 20 mg tablet 20 mg PO DAILY 7 days #7 tabs 05/07/23 tadalafil 20 mg tablet 20 mg PO DAILY PRN sexual activity 05/29/23 30 days #30 tabs tadalafil 5 mg tablet 10 mg (2 x 5 mg) PO DAILY sexual 05/29/23 activity 90 days #180 tabs cyclobenzaprine 10 mg tablet 10 mg PO TID #10 tabs 08/26/23 naproxen 500 mg tablet (Naprosyn) 500 mg PO BID #20 tabs 08/26/23 Allergies Allergy/AdvReac Type Severity Reaction Status Date / Time No Known Allergies Allergy Verified 06/06/23 08:49 [No Known Allergies*] Review of Systems Review of Systems: Yes all other systems are reviewed and are negative Neurologic: Denies Sensory deficit (Neuro) [facility] Past Medical History Medical History Physical exam Erectile dysfunction Hypovitaminosis D Urine WBC increased Hypoglycemia Hydrocele in adult Lupus Lupus Malabsorption due to intolerance, not elsewhere classified Overweight (BMI 25.0-29.9) Arthritis Hydrocele Steatosis, liver Hypertension Morbid obesity Surgical History S/P urological surgery S/P laparoscopic sleeve gastrectomy History of colonoscopy H/O adenoidectomy Hx of tonsillectomy Family History Family History Father No problems noted. Mother No problems noted. Maternal Aunt No problems noted. Brother No problems noted. Sister No problems noted. Social History Social History Housing: Apartment Alcohol intake: never Patient Tobacco Use Status: Never used Tobacco e-Cigarette/Vaping Use: Never Used Second Hand Smoke Exposure: No Advance Directives: No service: No Current occupational status: unemployed Cognitive needs: No Hearing needs: No Vision needs: No Physical Exam Vital Signs: Vital Signs: Last Vital Signs Temp 98.0 F 08/26/23 08:19 Pulse 76 08/26/23 08:19 Resp 18 08/26/23 08:19 BP 118/75 08/26/23 08:19 Pulse Ox 97 08/26/23 08:19 O2 Del Method Room Air 08/26/23 08:19 BMI result Body Mass Index 28.7 Const: General: healthy appearing Nutritional Appearance: average body habitus Orientation/consciousness: oriented to person and patient oriented x3 Limitations: no limitations HEENT: Head: Yes normal to inspection Ears: external ears normal General nose exam: Normal external nose present Mouth: Normal oral and palatal mucosa present and oropharynx normal Throat: Yes posterior oropharynx normal Eyes: General: appearance normal, both eyes and all related structures Neck: Other: supple Neck: Yes normal visual inspection Chest: Chest palpation & inspection: normal inspection of the chest Resp: Auscultation: clear to auscultation bilaterally Cardio: Jugular venous distension: no JVD Rate: regular rate Rhythm: regular rhythm Heart sounds: S1 normal heart sound present and S2 normal heart sound present GI: Inspection: Yes normal to inspection Palpation (GI): Soft to palpation, nontender and No hepatosplenomegaly present Auscultation: normal bowel sounds Back/Spine/Pelvis: Other: some lumbar tenderness, SI joint tenderness and sciatica tenderness on palpation Skin: General skin exam: no rashes or lesions noted Neuro: General: oriented to person and patient oriented x3 Cranial nerves: Yes CN's II-XII intact bilaterally Motor exam (neuro): 5/5 motor strength present throughout Sensory Exam: No Sensory deficit (Neuro) Extrem: General: Yes normal to inspection Psych: Appearance: grossly normal Course Reevaluation(s) Reevaluation #1: Patient with sciatica and severe djd will dc on NSAIDS and flexeril Time: 10:37 Medications Administered Discontinued Medications Generic Name Dose Route Start Last Admin Trade Name Freq PRN Reason Stop Dose Admin Cyclobenzaprine HCl 10 mg 08/26/23 08:52 08/26/23 09:22 Cyclobenzaprine Hcl 10 Mg Tablet PO 08/26/23 08:53 10 mg ONCE ONE Administration Ketorolac Tromethamine 60 mg 08/26/23 08:52 08/26/23 09:23 Ketorolac Tromethamine 60 Mg/2 Ml Vial IM 08/26/23 08:53 60 mg ONCE ONE Administration Medical Decision Making Differential Diagnosis Differential Diagnoses: The differential diagnosis associated with the presentation includes (severe djd, osteoarthritis, sciatica, ) Independent Interpretation I performed an independent interpretation of an: Plain X-Ray (Lumbar: severe djd) Independent Historian Clinical information obtained from an independent historian. History obtained from or confirmed by: Spouse Tests considered The following testing was considered but not selected: MRI was considered but patient non focal no bowel or bladder problems Chronic Conditions Patient?s care impacted by: Other (arthritis) Discharge Plan Discharge Clinical Impression: Lumbar radiculopathy, Sciatica Patient Disposition: Home, Self-Care Instructions: Sciatica (ED), Acute Low Back Pain (ED), Lumbar Radiculopathy (ED) Prescriptions: New cyclobenzaprine 10 mg tablet 10 mg PO TID Qty: 10 0RF naproxen [Naprosyn] 500 mg tablet 500 mg PO BID Qty: 20 0RF No Action hydroxychloroquine 200 mg tablet 200 mg PO BID Qty: 60 5RF calcium citrate-vitamin D3 315 mg-6.25 mcg (250 unit) tablet 2 tab PO BID Qty: 120 11RF thiamine HCl (vitamin B1) 100 mg tablet 50 mg PO DAILY 90 Days Qty: 45 1RF tadalafil 20 mg tablet 20 mg PO DAILY PRN (Reason: sexual activity) 30 Days Qty: 30 6RF Rx Instructions: May use up to 2 tablets on demand prednisone 20 mg tablet 20 mg PO DAILY 7 Days Qty: 7 0RF naproxen 500 mg tablet 500 mg PO BID 7 Days Qty: 14 0RF tamsulosin 0.4 mg capsule 0.4 mg PO BEDTIME 90 Days Qty: 90 1RF tadalafil 5 mg tablet 10 mg PO DAILY 90 Days Qty: 180 0RF Rx Instructions: [facility] [id number] Referrals: Caroline Ontiveros MD [Primary Care Provider] - 1 week Stand Alone Forms: Work/School Release
[2023-08-26] MEDS: Cyclobenzaprine HCl 10 MG TABLET PO (09:22)
[2023-08-26] MEDS: Ketorolac Tromethamine 60 MG/2 ML VIAL IM (09:23)
--- NOTE | 2023-08-26 09:29 | PC.NURSE ---
A & Ox3. c/o 06/09 left lower back pain radiating down LLE. Meds given as ordered. at bedside.
== END 2023-08-26 11:05 | disposition home or self-care (01) ==
PROVIDERS: Emergency Provider Emergency Medicine; PCP Internal Medicine
DX: M54.16 Radiculopathy, lumbar region (principal); M54.42 Lumbago with sciatica, left side; Z79.899 Other long term (current) drug therapy
CPT/HCPCS: 72100; 96372; 99283; 99284; J1885

== ENCOUNTER 2023-09-05 08:30 | Outpatient (AMB) | payer OTHER, SELFPAY ==
--- NOTE | 2023-09-05 08:40 | MHC.OFFVIS ---
Intake Intake Visit Reasons: 3M Follow up/E.D/PVR Intake Note: Patient is Present for Follow Up PVR Urology Medication: Tadalafil, Tamsulosin Antibiotic Allergies: None Blood Thinners: None Pharmacy: [facility] PVR: 0ml Allergies No Known Allergies [No Known Allergies*] Allergy (Verified 06/06/23 08:49) Medication List - Last Reconciled 09/05/23 by Remi Castro MD calcium citrate-vitamin D3 315 mg-6.25 mcg (250 unit) 2 tabs PO BID cyclobenzaprine 10 mg PO TID hydroxychloroquine 200 mg PO BID naproxen 500 mg PO BID 7 days naproxen (Naprosyn) 500 mg PO BID prednisone 20 mg PO DAILY 7 days tadalafil 40 mg (2 x 20 mg) PO ONCE PRN 30 days tadalafil 10 mg PO DAILY 90 days tamsulosin 0.4 mg PO BEDTIME 90 days thiamine HCl (vitamin B1) 50 mg (1/2 x 100 mg) PO DAILY 90 days HPI HPI Comments History of Present Illness Details Yasmeen is a very pleasant male. He is a patient of . He is seen for the following urologic conditions - lower urinary tract symptoms - erectile dysfunction 3 month follow-up for high-dose tadalafil Has had reasonable effect from 10 mg daily with 20 mg on demand Trialed 40 mg on demand Good response, continue Lower urinary tract symptoms Progressive Mostly weakness of stream Responds well to tamsulosin Erectile dysfunction Progressive Less ability to obtain erection firm enough for penetration Failed sildenafil in the past, prior 20 mg tadalafil on demand Labs - 12/23 T 907 FT 71 P 0.3 Therapeutic plan daily medium dose with on demand tadalafil and use of vacuum pump [facility] Medical History Physical exam Erectile dysfunction Hypovitaminosis D Urine WBC increased Hypoglycemia Hydrocele in adult Lupus Lupus Malabsorption due to intolerance, not elsewhere classified Overweight (BMI 25.0-29.9) Arthritis Hydrocele Steatosis, liver Hypertension Morbid obesity Surgical History S/P urological surgery S/P laparoscopic sleeve gastrectomy History of colonoscopy H/O adenoidectomy Hx of tonsillectomy Family History Father No problems noted. Mother No problems noted. Maternal Aunt No problems noted. Brother No problems noted. Sister No problems noted. Social History Housing: Apartment Alcohol intake: never Patient Tobacco Use Status: Never used Tobacco e-Cigarette/Vaping Use: Never Used Second Hand Smoke Exposure: No service: No Current occupational status: unemployed Cognitive needs: No Hearing needs: No Vision needs: No Review of Systems Const Denies chills and Denies fever(s) Card Reports no additional complaints and Denies syncope Resp Denies cough GI Denies abdominal pain and Denies heartburn Reports as per HPI and Denies change in libido Neuro Denies syncope Psych Denies change in libido Endo Denies change in libido Physical Exam Const General: cooperative, healthy appearing, comfortable and no acute distress Orientation/consciousness: patient oriented x3 HEENT Face and sinus: Yes normal facial exam Mouth: moist mucous membranes Neck Neck: Yes normal visual inspection, Yes full ROM and Yes trachea midline Chest Chest palpation & inspection: normal inspection of the chest Resp Effort & Inspection: normal respiratory effort, able to speak in complete sentences and no respiratory distress GI Inspection: Yes normal to inspection Back/Spine/Pelvis Cervical Spine: normal cervical lordosis Thoracic/Lumbar Spine: thoracic and lumbar spine normal to inspection Skin General skin exam: no rashes or lesions noted Neuro General: patient oriented x3, gait normal, tone normal and moves all extremities Extrem General: Yes normal to inspection and Yes capillary refill normal Office Procedures Post Void Residual Post Residual Void Post Void Residual (PVR): 0 [id number] Void Residual by ultrasound Results AMB Urinalysis, Automated UA Leukoctes 0 Logan/uL Last Edit by EDD Rebolledo on 09/05/23 08:52 UA Nitrite Negative Last Edit by EDD Rebolledo on 09/05/23 08:52 UA Urobilinogen 0.2 mg/dL Last Edit by EDD Rebolledo on 09/05/23 08:52 UA Protein 0 mg/dL Last Edit by EDD Rebolledo on 09/05/23 08:52 UA pH 6.0 Last Edit by EDD Rebolledo on 09/05/23 08:52 UA Blood 0 Elvis/uL Last Edit by Cherise Casey, RMA on 09/05/23 08:52 UA Specific [place] 1.015 Last Edit by Cherise Casey, RMA on 09/05/23 08:52 UA Ketone Negative Last Edit by Cherise Casey, RMA on 09/05/23 08:52 UA Bilirubin 0 mg/dL Last Edit by Cherise Casey RMA on 09/05/23 08:52 UA Glucose 0 mg/dL Last Edit by Cherise Casey, RMA on 09/05/23 08:52 Results Reviewed Results Reviewed: Laboratory Last Values Urine pH (Auto) 6.0 09/05/23 08:44 Specific [place] (Auto) 1.015 09/05/23 08:44 Urine Protein (Auto) 0 mg/dL 09/05/23 08:44 Glucose (UA)(Auto) 0 mg/dL 09/05/23 08:44 Urine Ketones (Auto) Negative 09/05/23 08:44 Urine Blood (Auto) 0 Elvis/uL 09/05/23 08:44 Urine Nitrite (Auto) Negative 09/05/23 08:44 Urine Bilirubin (Auto) 0 mg/dL 09/05/23 08:44 Urine Urobilinogen (Auto) 0.2 mg/dL 09/05/23 08:44 Leukocyte Esterase (Auto) 0 Logan/uL 09/05/23 08:44 Assessment & Plan Assessment & Plan (1) Erectile dysfunction: Code(s): N52.9 - Male erectile dysfunction, unspecified Plan 6 months Orders: Orders AMB Urinalysis Automated Today Z13.9 - Encounter for screening, unspecified AMB Post Void Residual by ultrasound Today N40.1 - Benign prostatic hyperplasia with lower urinary tract symptoms Medications: Changed From tadalafil May use up to 2 tablets on demand 20 mg PO DAILY 30 days PRN 30 tabs 6RF sexual activity N52.9 - Male erectile dysfunction, unspecified To tadalafil May use up to 2 tablets on demand 40 mg (2 x 20 mg) PO ONCE 30 days PRN 60 tabs 0RF sexual activity N52.9 - Male erectile dysfunction, unspecified From tadalafil [facility] DR33 [id number] 10 mg (2 x 5 mg) PO DAILY 90 days 180 tabs 0RF sexual activity N52.9 - Male erectile dysfunction, unspecified To tadalafil BIN [id number] [facility] Group DR33 10 mg PO DAILY 90 days 90 tabs 1RF sexual activity N52.9 - Male erectile dysfunction, unspecified Patient Instructions: Imaging studies, laboratory and physical exam results were discussed and reviewed in detail. No major barriers to patient understanding were identified. An opportunity to ask questions regarding the treatment plan was provided. All questions were answered. The patient expressed understanding and agreement with the above treatment plan. The patient is aware they should contact our office by phone for worsening of their current condition or the appearance of new urologic symptoms. Compliance is encouraged with any medications and followup testing that is ordered. It is a privilege to participate in the urologic care of your patient. If you have any questions or concerns regarding treatment for the above conditions, or other urologic issues, please do not hesitate to contact me. The office telephone contact is [phone]. This note is constructed using voice recognition software. While every effort has been made to ensure accuracy staffing consultant errors may have been included. Yours sincerely, Dr Remi Castro MD, [facility] - Urology Providers of Expert, Compassionate Care for the Genitourinary System Coding Level of Care Code Est Pt Level 3 (78021) Diagnoses Erectile dysfunction N52.9 CPT Codes Post Residual Void - PVR CPT Code: 30542-Pebc Void Residual by ultrasound ([id number])
== END 2023-09-05 09:02 | disposition home or self-care (01) ==
PROVIDERS: PCP Nurse Practitioner Family; Visit Provider Urology
DX: N52.9 Male erectile dysfunction, unspecified (principal); Z13.9 Encounter for screening, unspecified
CPT/HCPCS: 99213

== ENCOUNTER → 2023-09-05 08:30 | Outpatient (BNVA) | payer OTHER, SELFPAY | PROVIDERS: PCP Nurse Practitioner Family; Visit Provider Urology | DX: N52.9 Male erectile dysfunction, unspecified (principal); N40.1 Benign prostatic hyperplasia with lower urinary tract symptoms; R39.12 Poor urinary stream | CPT/HCPCS: 51798; 81003 ==

== ENCOUNTER 2023-11-01 09:08 | Outpatient (REF) | payer OTHER, SELFPAY ==
[2023-11-01 09:47] LABS: Eosinophils Absolute Auto 0.1 X10*3/uL (0.0-0.4); Eosinophils Percent Auto 2.6 % (0-4); Hematocrit 38.2 % (42.0-52.0); Hemoglobin 12.7 g/dl (14.0-18.0); Imm Gran Abs Auto 0.01 X10*3/uL (0.00-0.03); Imm Gran Pct Auto 0.4 % (0.0-0.4); Lymphocytes Absolute Auto 0.9 X10*3/uL (1.2-4.9); MANUAL DIFF FLAG SCAN; Mean Corpuscular HGB Conc 33.2 g/dl (31.0-36.0); Mean Corpuscular Hemoglobin 25.6 pg (27.0-33.0); Mean Platelet Volume 10.8 fL (9.4-12.4); Monocytes Absolute Auto 0.5 X10*3/uL (0.1-1.2); Monocytes Percent Auto 19.7 % (2-11); Neutrophils Absolute Auto 0.8 x10*3/uL (2.0-8.3); Neutrophils Percent Auto 36.3 % (45-73); Platelet Count 119 X10*3/uL (160-400); Red Blood Count 4.96 X10*6/uL (4.60-5.80); SCAN SMEAR FLAG 1; White Blood Count 2.3 X10*3/uL (4.8-10.8)
[2023-11-01 10:14] LABS: SLIDE REVIEW VERIFIED
[2023-11-01 10:39] LABS: Alanine Aminotransferase 16 U/L (0-40); Albumin Level 4.3 g/dL (3.5-5.0); Alkaline Phosphatase 59 U/L (39-117); Anion Gap 12 (12-20); Aspartate Amino Transferase 25 U/L (5-37); Bilirubin Total 1.3 mg/dL (0.0-1.0); Blood Urea Nitrogen 19 mg/dL (9-16); Calcium 9.5 mg/dL (8.4-10.2); Carbon Dioxide 26 mmol/L (22-29); Chloride 104 mmol/L (96-108); Cholesterol 190 mg/dL (<200); Estimated Glomerular Filt Rate > 60; Glucose Fasting 77 mg/dL (60-99); HDL Cholesterol 50 mg/dL (>40); LDL Cholesterol Calculated 128 mg/dL (<100); Potassium 4.2 mmol/L (3.3-5.1); Sodium 138 mmol/L (135-145); Total Protein 7.7 g/dL (6.5-8.0); Triglycerides 61 mg/dL (<150)
[2023-11-01 10:50] LABS: Vitamin D 25-OH Total 38.8 ng/mL (>30)
[2023-11-01 11:05] LABS: Folate 9.7 ng/mL (> or = 4.0); Vitamin B12 1310 pg/mL (200-900)
== END 2023-11-01 09:09 | disposition home or self-care (01) ==
LOC: HO.LAB 09:08
PROVIDERS: PCP Internal Medicine; Visit Provider Internal Medicine
DX: E55.9 Vitamin D deficiency, unspecified (principal); E53.8 Deficiency of other specified B group vitamins; G47.00 Insomnia, unspecified; E78.5 Hyperlipidemia, unspecified; D64.9 Anemia, unspecified
CPT/HCPCS: 36415; 80053; 80061; 82306; 82607; 82746; 85025

== ENCOUNTER 2023-11-03 10:26 | Outpatient (AMB) | payer OTHER, SELFPAY ==
--- NOTE | 2023-11-03 10:28 | MHC.PC.OV ---
Vital Signs 11/03/23 10:32 Height 5 ft 10 in Weight 229 lb BMI 32.9 BP 110/72 Blood Pressure Location Lt brachial Position Sitting Intake Visit Reasons: insomnia Intake Note: Patient here for follow up insomnia [employer] Required: No Accompanied by: Self / Same As Patient Allergies No Known Allergies [No Known Allergies*] Allergy (Verified 11/03/23 10:43) Medication List - Last Reconciled 11/03/23 by Caroline Wilson MD calcium citrate-vitamin D3 315 mg-6.25 mcg (250 unit) 2 tabs PO BID cyclobenzaprine 10 mg PO TID hydroxychloroquine 200 mg PO BID naproxen (Naprosyn) 500 mg PO BID tadalafil 40 mg (2 x 20 mg) PO ONCE PRN 30 days tadalafil 10 mg PO DAILY 90 days tamsulosin 0.4 mg PO BEDTIME 90 days thiamine HCl (vitamin B1) 50 mg (1/2 x 100 mg) PO DAILY 90 days Tobacco use date assessed: 04/30/23 Dental Screening Dental Screen Date: 11/03/23 Did you have a dental visit in the last 12 months?: Yes Did you have a dental problem in the last 6 months where you did not have access to dental care?: No Was dental information given to patient?: Patient has dentist HPI HPI Comments History of Present Illness Details This is a 58-year-old male with lupus, thiamine deficiency, erectile dysfunction and pancytopenia that comes today for follow-up on his conditions. Lupus is follow by Rheumatology and has been stable with hydroxychloroquine 200 mg twice a day. He follows with Ophthalmology due to these medication. On vitamin B1 supplements for his vitamin-D deficiency. On tadalafil for rectal dysfunction and is follow by Urology. Has low white blood cells with low hemoglobin and low platelets. Was seen Hematology-Oncology and stop seen her 2020. I will refer him again. Denies any acute complaint. Says that has been sleeping well. [facility] Medical History Physical exam Erectile dysfunction Hypovitaminosis D Urine WBC increased Hypoglycemia Hydrocele in adult Lupus Lupus Malabsorption due to intolerance, not elsewhere classified Overweight (BMI 25.0-29.9) Arthritis Hydrocele Steatosis, liver Hypertension Morbid obesity Surgical History S/P urological surgery S/P laparoscopic sleeve gastrectomy History of colonoscopy H/O adenoidectomy Hx of tonsillectomy Family History Father No problems noted. Mother No problems noted. Maternal Aunt No problems noted. Brother No problems noted. Sister No problems noted. Social History Housing: Apartment Alcohol intake: never Patient Tobacco Use Status: Never used Tobacco e-Cigarette/Vaping Use: Never Used Second Hand Smoke Exposure: No service: No Current occupational status: unemployed Cognitive needs: No Hearing needs: No Vision needs: No Questionnaire Thrive Questionnaire Date Thrive assessed: 04/30/23 PINO-7 AMB Questionnaire PINO-7 Date PINO - 7 assessed: 04/30/23 Source: Developed by Drs. Servando Grimes, Umm Helms, Anthony Heredia and colleagues, with an educational ebony from [email or web address]. Review of Systems Const All systems reviewed & are unremarkable except as noted in HPI and below Eyes Reports no additional complaints, Denies change in vision and Denies other visual disturbances Card Denies chest pain at rest, Denies chest pain with activity, Denies edema, Denies irregular heart rhythm, Denies claudication, Denies dyspnea, Denies dyspnea on exertion, Denies orthopnea, Denies paroxysmal nocturnal dyspnea and Denies slow heart rate Resp Denies cough, Denies dyspnea and Denies dyspnea on exertion GI Denies abdominal pain, Denies change in bowel habits, Denies excessive flatus, Denies nausea and Denies vomiting Denies urinary hesitancy, Denies urinary incontinence and Denies urinary urgency Musc Denies abnormal gait, Denies atrophy, Denies deformity and Denies limited range of motion Skin/Breast Denies bleeding lesions, Denies changing lesions and Denies rash Neuro Denies abnormal gait and Denies lack of coordination Physical exam (Primary Care) Vital Signs: Last Vital Signs BP 110/72 11/03/23 10:32 BMI result Body Mass Index 32.9 Tobacco/Smoking Status: Tobacco use Status Tobacco use date assessed 04/30/23 11/03/23 10:29 Patient Tobacco Use Status Never used Tobacco 11/03/23 10:29 e-Cigarette/Vaping Use Never Used 11/03/23 10:29 Thrive Assessment: Date of Thrive Assessment Date Thrive assessed 04/30/23 11/03/23 10:29 Eyes General: appearance normal, both eyes and all related structures Eyelids: Yes eyelids normal Conjunctivae: conjunctivae normal Neck Neck: Yes normal visual inspection and Yes supple Resp Effort & Inspection: normal respiratory effort Auscultation: clear to auscultation bilaterally Cardio Jugular venous distension: no JVD Rate: regular rate Rhythm: regular rhythm Heart sounds: S1 normal heart sound present and S2 normal heart sound present Extrem General: Yes full ROM Office Procedures Flu Questionnaire Does the patient have a severe egg allergy?: No Immunizations flu vacc [id number] 6mos up(PF) 60 mcg(15 mcgx4)/0.5 mL IM syringe Performing Provider: Caroline Wilson MD [facility] Documented (not given) by: EDD Chu on 11/03/23 10:40 Reason Not Given: Patient Refused Assessment and Plan Assessment & Plan (1) Thiamine deficiency: Code(s): E51.9 - Thiamine deficiency, unspecified Plan: Continue vitamin B1 supplements. (2) Erectile dysfunction: Code(s): N52.9 - Male erectile dysfunction, unspecified Plan: Continue tadalafil. (3) Lupus: Code(s): M32.9 - Systemic lupus erythematosus, unspecified Plan: Continue hydroxychloroquine. Follow-up per Rheumatology. (4) Pancytopenia: Code(s): D61.818 - Other pancytopenia Plan: Referred to Hematology-Oncology. Orders: Orders Influenza [id number] Immunization Today Z23 - Encounter for immunization Referrals Hematology & Oncology Referral D61.818 - Other pancytopenia Coding Level of Care Code Est Pt Level 4 (23595) Diagnoses Thiamine deficiency E51.9 Erectile dysfunction N52.9 Lupus M32.9 Pancytopenia D61.818 Time Spent (min) 20
[2023-11-03 10:32] VITALS: BP 110/72; BMI 32.9
== END 2023-11-03 10:49 | disposition home or self-care (01) ==
PROVIDERS: PCP Internal Medicine; Visit Provider Internal Medicine
DX: E51.9 Thiamine deficiency, unspecified (principal); M32.9 Systemic lupus erythematosus, unspecified; D61.818 Other pancytopenia; N52.9 Male erectile dysfunction, unspecified
CPT/HCPCS: 99214

== ENCOUNTER 2023-11-21 08:18 | Outpatient (AMB) | payer OTHER, SELFPAY ==
--- NOTE | 2023-11-21 08:29 | A.OFFVIS_ITS ---
Intake VS Expanded 11/21/23 08:56 BP 125/63 Blood Pressure Location Rt brachial Blood Pressure Position Sitting Pulse 97 Pulse Source Pulse Oximeter Temp 97.6 F Temperature Source Temporal Artery Scan Pulse Oximetry 99 Oxygen Delivery Method Room Air Height 5 ft 10 in Weight 229 lb 12.8 oz BMI 33.0 Body Fat % 33.5 Body Fat Mass 77.0 Fat Free Mass 152.8 Visceral Fat Rating 18.0 Body Water % 45.3 Body Water Mass 104.0 Muscle Mass/Score 145.2 Basal Metabolic Rate/Score 2,065 Intake Visit Reasons: (OV) PO LSG DOS 02/04/19 Allergies No Known Allergies [No Known Allergies*] Allergy (Verified 11/21/23 08:32) Medication List - Last Reconciled 11/21/23 by Nafisa Rhodes PA-C hydroxychloroquine 200 mg PO BID tadalafil 40 mg (2 x 20 mg) PO ONCE PRN 30 days tamsulosin 0.4 mg PO BEDTIME 90 days thiamine HCl (vitamin B1) 50 mg (1/2 x 100 mg) PO DAILY 90 days HPI HPI Comments History of Present Illness Details 58 yo man now 4.5 years s/p LSG with Dr Roca, weight at last appt in May 2021 was 186.4 lbs. He has gained 43.4 lbs. Got a letter to come in today for annual check up. Wants No fast food, no rice or potato, Feels he eats to much PB and cheese. He new diagnosis of lupus, see balance assembler in [place], and will not have appt with Dr Hull for anemia. Meal plan: 8-9 am coffee with UAM, 1 egg with full fat mozzarella 12 - 1pm - skips lunch 1-2d/ week. order s small salad with chicken and doesn't finish it. water 6pm - salad with vegetables and chicken. water OR has 1 egg with cheese. may have a coffee before bed. Snacks on 1-2 TBL of PB, once a day Exercise - none, long work days. Post op complications: none FARIHA: resolved DM: resolved HTN:resolved Hyperlipidemia: no meds GERD: 0 Satisfaction with present condition - satisfied [facility] Medical History Physical exam Erectile dysfunction Hypovitaminosis D Urine WBC increased Hypoglycemia Hydrocele in adult Lupus Lupus Malabsorption due to intolerance, not elsewhere classified Overweight (BMI 25.0-29.9) Arthritis Hydrocele Steatosis, liver Hypertension Morbid obesity Surgical History S/P urological surgery S/P laparoscopic sleeve gastrectomy History of colonoscopy H/O adenoidectomy Hx of tonsillectomy Family History Father No problems noted. Mother No problems noted. Maternal Aunt No problems noted. Brother No problems noted. Sister No problems noted. Social History Housing: Apartment Alcohol intake: never Patient Tobacco Use Status: Never used Tobacco e-Cigarette/Vaping Use: Never Used Second Hand Smoke Exposure: No service: No Current occupational status: unemployed Cognitive needs: No Hearing needs: No Vision needs: No Physical Exam Vital Signs: Last Vital Signs Temp 97.6 F 11/21/23 08:56 Pulse 97 11/21/23 08:56 BP 125/63 11/21/23 08:56 Pulse Ox 99 11/21/23 08:56 Oxygen Delivery Method Room Air 11/21/23 08:56 BMI result Body Mass Index 33.0 Const General: cooperative, healthy appearing and no acute distress GI Inspection: Yes incision (all well healed) Palpation (GI): Soft to palpation, nontender, no hernias and no masses Assessment & Plan Assessment & Plan (1) Obesity (BMI 30-39.9): Code(s): E66.9 - Obesity, unspecified Plan: 58 yo man who si 4.5 years s/p LSG without complications. He has a new diagnosis of Lupus and will see sergeant at arms for pancytopenia. I have ordered TSH, A1C, and Vitamin A levels per ASMBS standards. We discussed that his weight is once again in the obesity category and to stay healthy he must get his BMI at lest below 30 and maintain that. Will not be able to do that without regular exercise. He is not getting enough protien and has stopped exercise - reasons he gained 43 lbs. Meal plan- He states he would like to restart protein shakes 1 -2 times per day. 9am - cofee and 25- 30 gram shake 1pm - shake most day - weekends will have 4 oz protein and 4 oz veg 6pm - 4 oz protein and 4 oz veg May have his 1-2 TBL PB or a reduced fat cheese stick in evening Exericse - must restart to burn 2, 000 daniel per week for weight loss. Has gym membership. Next appt for his 6 year post op check in January. Patient is obese and is not considered stable at this time. I spent 30 minutes in total with patient reviewing/updating records, examining the patient and counseling the patient on weight management as detailed above. (2) S/P laparoscopic sleeve gastrectomy: Comment: DOS 02/04/19, Dr. Jones Code(s): Z98.84 - Bariatric surgery status (3) Lupus: Code(s): M32.9 - Systemic lupus erythematosus, unspecified Plan see above Orders: Orders Hemoglobin A1c Today Z98.890 - Other specified postprocedural states Vitamin A Today Z98.84 - Bariatric surgery status Coding Level of Care Code Est Pt Level 4 (67126) Diagnoses Obesity (BMI 30-39.9) E66.9 S/P laparoscopic sleeve gastrectomy Z98.84 Lupus M32.9
[2023-11-21 08:56] VITALS: BP 125/63; PULSE 97; TEMP 36.4; O2SAT 99; BMI 33.0
== END 2023-11-21 09:11 | disposition home or self-care (01) ==
PROVIDERS: PCP Internal Medicine; Visit Provider Physician Assistant
DX: E66.9 Obesity, unspecified (principal); Z98.84 Bariatric surgery status; M32.9 Systemic lupus erythematosus, unspecified
CPT/HCPCS: 99214

== ENCOUNTER → 2023-11-21 08:18 | Outpatient (BNVA) | payer OTHER, SELFPAY | PROVIDERS: PCP Internal Medicine; Visit Provider Physician Assistant ==

== ENCOUNTER 2023-11-27 07:08 | Day surgery (SDC) | payer OTHER, SELFPAY ==
[2023-11-25 13:39] VITALS: BMI 32.9
--- NOTE | 2023-11-27 06:43 | MHC.SHP ---
Pre-Procedural Eval Section A Date of Service: 11/27/23 Section B Chief Complaint: Encounter for screening for malignant neoplasm of Relevant Family History (Specify if Yes): No Relevant Social History: None Present Medications: see Short Stay Collaborative assessment Medical History: Significant History (Erectile dysfunction Hypovitaminosis D Urine WBC increased Hypoglycemia Hydrocele in adult Lupus Lupus Malabsorption due to intolerance, not elsewhere classified Overweight (BMI 25.0-29.9) Arthritis Hydrocele Steatosis, liver Hypertension Morbid obesity) History of Previous Operations: Relevant previous surgery/procedure and date(s) (/P urological surgery S/P laparoscopic sleeve gastrectomy History of colonoscopy H/O adenoidectomy Hx of tonsillectomy) Allergies: Allergies Allergy/AdvReac Type Severity Reaction Status Date / Time No Known Allergies Allergy Verified 11/21/23 08:32 [No Known Allergies*] Review of Systems Sugical H&P ROS: Negative: Constitution, Cardiovascular, Respiratory, Neurological, Psychiatric, Hem-Onc, Allergic/Immunologic, Gastrointestinal, Genitourinary, Musculoskeletal, Integumentary, Endocrine and Eyes/Ears/Nose/Throat Exam Surgical H&P Exam: Normal: HEENT, Normal: Heart, Normal: Lungs, Normal: Extremities, Normal: Abdomen, Normal: Skin and Normal: Neurological Plan Diagnosis/Plan: Unchanged I have reviewed the history and physical and performed a pertinent physical examination on my patient. No changes have occurred unless specified. Time Spent With Patient Time: Total time managing care of this patient today ____ minutes.
[2023-11-27 07:10] VITALS: BMI 33.5
[2023-11-27 07:19] VITALS: BP 141/76; PULSE 78; RESP 20; TEMP 36.3; O2SAT 99
[2023-11-27] MEDS: Lactated Ringers 1,000 ML 50 ML IVCONT (07:26)
--- NOTE | 2023-11-27 08:15 | HO.ANESPROP2 ---
HPI - Anesthesia Eval Consult details Narrative: colonoscopy [facility] Active Problems Active Problems: All Active Problems (Updated 08/27/23 @ 00:01 by Jhony Benitez) Obesity (BMI 30-39.9) (Acute) Screening for colon cancer (Acute) Insomnia (Acute) Thiamine deficiency (Acute) Vitamin A deficiency (Acute) Hypogonadism in male (Acute) Physical exam (Acute) Erectile dysfunction (Acute) Hypovitaminosis D (Acute) Urine WBC increased (Acute) Hypoglycemia (Acute) Hyperbilirubinemia (Acute) S/P laparoscopic sleeve gastrectomy (Acute) Overweight (BMI 25.0-29.9) (Acute) Lupus (Acute) Hydrocele in adult (Acute) Pancytopenia (Acute) BPH loc w urin obs/LUTS (Acute) Malabsorption due to intolerance, not elsewhere classified (Acute) Past Medical History Medical History Physical exam Erectile dysfunction Hypovitaminosis D Urine WBC increased Hypoglycemia Hydrocele in adult Lupus Lupus Malabsorption due to intolerance, not elsewhere classified Overweight (BMI 25.0-29.9) Arthritis Hydrocele Steatosis, liver Hypertension Morbid obesity Family History Family History Father No problems noted. Mother No problems noted. Maternal Aunt No problems noted. Brother No problems noted. Sister No problems noted. Family history of problems with anesthesia: No Surgical History Surgical History S/P urological surgery S/P laparoscopic sleeve gastrectomy History of colonoscopy H/O adenoidectomy Hx of tonsillectomy History of Problems with Anesthesia: No Social History Social History Housing: Apartment Alcohol intake: never Patient Tobacco Use Status: Never used Tobacco e-Cigarette/Vaping Use: Never Used Second Hand Smoke Exposure: No Are you DNR?: No Advance Directives: No Advance Directives Information Provided: Yes Recently lost weight without trying: No Nutrition Risks: No Nutritional Risk service: No Current occupational status: unemployed Cognitive needs: No Hearing needs: No Vision needs: No Meds Allergies Allergy/AdvReac Type Severity Reaction Status Date / Time No Known Allergies Allergy Verified 11/21/23 08:32 [No Known Allergies*] Active Medications: Current Medications Lactated Ringer's (Lr) 1,000 mls @ 50 mls/hr IVCONT .Q20H TOMMY Last Admin: 11/27/23 07:26 Dose: 50 mls/hr Exam Height,Weight and Vital Signs: Height 5 ft 10 in Weight 106.05 kg Last Vital Signs Temp 97.4 F 11/27/23 07:19 Pulse 78 11/27/23 07:19 Resp 20 11/27/23 07:19 BP 141/76 H 11/27/23 07:19 Pulse Ox 99 11/27/23 07:19 O2 Del Method Room Air 11/27/23 07:19 Airway Mallampati Class: IV TM Dist: >3cm Neck ROM: Limited Heart: rrr Lungs: cta Assessment and Plan Assessment Anesthesia Assessment: Anesthesia Plan Discussed Final Anesthetic Review Family History of Problems with Anesthesia: No History of Problems with Anesthesia: No NPO: Yes ASA Class: III Final Preanesthetic Review: No Changes in Pt Med Stat, Meds/Allgs Chart Reviewed, Consent Obtained/Reviewed and Anes Risks/Benef Reviewed Patient Risk: Intermediate Procedure Risk: Low Anesthetic Plan Anesthetic Plan: MAC: Disposition: Standard PACU
[2023-11-27 09:02] VITALS: BP 86/52; PULSE 67; RESP 16; TEMP 36.3; O2SAT 97
--- NOTE | 2023-11-27 09:04 | P.OP_ITS ---
Operative Note Operative Note Date of Service: 11/27/23 Narrative: Operative Information Procedure Description: Colonoscopy Indication: screening Anesthesia: MAC COLONOSCOPY Instrument: Olympus variable stiffness pediatric scope 190L Colonoscopy Monitoring: Vital signs and clinical assessment, continuous EKG monitoring, Pulse oximetry, Carbon Dioxide monitoring and blood pressure monitoring were done throughout the procedure. Colon withdrawal time was 20 minutes. Procedure: The patient was placed in the left lateral decubitis position and pre-procedure medications were administered. After a digital rectal examination of the ano-rectum, the video colonoscope was inserted into the rectum and advanced through the colon to the cecum/TI. The colonoscope was slowly withdrawn in a retrograde panoramic fashion and the colon mucosa was carefully examined including a retroflexed view of the rectum. Findings and interventions are described below. Procedure Difficulty: easy Findings: Terminal Ileum-normal Cecum:14-16 mm sessile polyp with lateral granular spreading features, injected with eleview and removed piece meal with hot snare, with edges ablated using soft tip coag, then one ultra clip applied for hemostasis --polyp pieces retrived with net Ascending Colon: 5-7 mm sessile polyp removed with cold snare Transverse Colon -normal Descending Colon:normal Sigmoid Colon: normal Rectum: Retroflexion with small internal hemorrhoids, grade I Anorectum - normal Colon preparation: [place] Bowel Preparation Scale Right colon; 2 Transverse colon: 3 Left colon; 3 (0 = Unprepared colon segment with mucosa not seen due to solid stool that cannot be cleared. 1 = Portion of mucosa of the colon segment seen, but other areas of the colon segment not well seen due to staining, residual stool and/or opaque liquid. 2 = Minor amount of residual staining, small fragments of stool and/or opaque liquid, but mucosa of colon segment seen well. 3 = Entire mucosa of colon segment seen well with no residual staining, small fragments of stool or opaque liquid) Impression and Post Procedure Diagnosis: polyps internal hemorrhoids Plan: High fiber diet leaflet Avoid straining at stool, epsom salts and sitz bath, anusol supps or cream Repeat Colonoscopy in 3-6 months for review of resection site for large polyp or earlier if clinically indicated Above findings were reviewed with the patient and relevant handouts were provided if indicated.
[2023-11-27 09:05] VITALS: BP 97/62
[2023-11-27 09:17] VITALS: BP 117/71; PULSE 69; RESP 16; O2SAT 99
[2023-11-27 09:32] VITALS: BP 138/78; PULSE 67; RESP 16; O2SAT 100
[2023-11-27 09:48] VITALS: BP 137/83; PULSE 67; RESP 16; TEMP 36.3; O2SAT 100
== END 2023-11-27 10:08 | disposition home or self-care (01) ==
PROVIDERS: PCP Internal Medicine; Visit Provider Internal Medicine Gastroenterology
PROC: 0DJD8ZZ Inspection of Lower Intestinal Tract, Via Natural or Artificial Opening Endoscopic (ICD-10-PCS; CPT 45378; principal; 2023-11-27 08:50)
DX: Z12.11 Encounter for screening for malignant neoplasm of colon (principal); D12.2 Benign neoplasm of ascending colon; D12.0 Benign neoplasm of cecum; K57.30 Diverticulosis of large intestine without perforation or abscess without bleeding; K64.0 First degree hemorrhoids; I10 Essential (primary) hypertension; M32.9 Systemic lupus erythematosus, unspecified; G47.00 Insomnia, unspecified; E51.9 Thiamine deficiency, unspecified; E50.9 Vitamin A deficiency, unspecified; E55.9 Vitamin D deficiency, unspecified; Z98.84 Bariatric surgery status
CPT/HCPCS: 45388; 45385; 45381; 88305; J2704

== ENCOUNTER → 2023-11-27 07:08 | Outpatient (BNV) | payer OTHER, SELFPAY | PROVIDERS: PCP Internal Medicine; Visit Provider Internal Medicine Gastroenterology | DX: Z12.11 Encounter for screening for malignant neoplasm of colon (principal); K63.5 Polyp of colon; K64.8 Other hemorrhoids | CPT/HCPCS: 45381; 45385; 45388 ==

== ENCOUNTER 2023-12-08 09:24 | Outpatient (AMB) | payer OTHER, SELFPAY ==
--- NOTE | 2023-12-08 09:59 | A.OFFVIS_ITS ---
Intake Vital Signs 12/08/23 10:01 Weight 232 lb BP 126/57 L Blood Pressure Location Lt brachial Position Sitting Pulse 78 Intake Visit Reasons: S/P [place] : Dr. Hernandez Intake Note: Patient follow up for Colonoscopy consult. Patient denies any GI issues. [facility] [employer] [employer] Required: No Accompanied by: Self / Same As Patient Allergies No Known Allergies [No Known Allergies*] Allergy (Verified 12/08/23 09:58) HPI S/P [place] : Dr. Hernandez HPI Details LAST VISIT Screening for colon cancer Patient denies any GI, cardiac or respiratory symptoms.? Denies any issues with anesthesia in the past.? Denies any history of sleep apnea.? No history infectious diseases in the past or present.? Not on any anticoagulation therapy.? Patient denies melena, hematochezia, unintentional weight loss or ribbon like stools.? Discussed at length the pre-procedure,? prep, diet & medications as well as what to expect prior, during and after the procedure.?? Stressed the importance of good bowel prep. ?Recommended the use of Vaseline or Calmoseptine OTC & baby wipes with bowel movements to promote comfort.? ?Patient verbalizes understanding and agrees to plan of care.? He was given the opportunity to ask questions and all questions answered.? We will see him after the procedure.? ? Patient prefers to have prep send closer to the procedure. Discussed with him Dulcolax and split MiraLax prep with times at 17:00 and 22:00. COLONOSCOPY SCREENING Findings: Terminal Ileum-normal Cecum:14-16 mm sessile polyp with lateral granular spreading features, injected with eleview and removed piece meal with hot snare, with edges ablated using soft tip coag, then one ultra clip applied for hemostasis --polyp pieces retrived with net Ascending Colon: 5-7 mm sessile polyp removed with cold snare Transverse Colon -normal Descending Colon:normal Sigmoid Colon: normal Rectum: Retroflexion with small internal hemorrhoids, grade I Anorectum - normal Colon preparation: [place] Bowel Preparation Scale Right colon; 2 Transverse colon: 3 Left colon; 3 (0 = Unprepared colon segment with mucos a not seen due to solid stool that cannot be cleared. 1 = Portion of mucosa of the colon segme nt seen, but other areas of the colon segment not well seen due to staining, residual stool and/or opaque liquid. 2 = Minor amount of residual staining, s mall fragments of stool and/or opaque liquid, but mucosa of colon segment seen well. 3 = Entire mucosa of colon segment seen well with no residual staining, small fragments of stool or opaque liquid) Impression and Post Procedure Diagnosis: polyps internal hemorrhoids Plan: High fiber diet leaflet Avoid straining at stool, epsom salts and sitz bath, anusol supps or cream Repeat Colonoscopy in 3-6 months for review of resection site for large polyp or earlier if clinically indicated PATHOLOGY RESULTS Diagnosis A. Colon, ascending, polyp: Tubular adenoma, likely excised; negative for high- grade dysplasia and carcinoma. B. Colon, cecal polyp: Tubulovillous adenoma with serrated features (cannot evaluate margin); negative for high-grade dysplasia and carcinoma TODAY'S VISIT: Patient is here today for follow-up and to discuss colonoscopy results. As mentioned above in HPI patient had medium size tubular villous adenoma in cecum, unable to differentiate margins. Patient will need to repeat colonoscopy in 3-6 months. Patient denies any melena, hematochezia, unintentional weight loss or ribbon like stools. Denies any dyspepsia, dysphagia or odynophagia. Patient denies any ill effects from the prep, anesthesia procedure itself. Patient reports that he has been feeling well since the procedure. [facility] Medical History Physical exam Erectile dysfunction Hypovitaminosis D Urine WBC increased Hypoglycemia Hydrocele in adult Lupus Lupus Malabsorption due to intolerance, not elsewhere classified Overweight (BMI 25.0-29.9) Arthritis Hydrocele Steatosis, liver Hypertension Morbid obesity Surgical History S/P urological surgery S/P laparoscopic sleeve gastrectomy History of colonoscopy H/O adenoidectomy Hx of tonsillectomy Family History Father No problems noted. Mother No problems noted. Maternal Aunt No problems noted. Brother No problems noted. Sister No problems noted. Social History Housing: Apartment Alcohol intake: never Patient Tobacco Use Status: Never used Tobacco e-Cigarette/Vaping Use: Never Used Second Hand Smoke Exposure: No service: No Current occupational status: unemployed Cognitive needs: No Hearing needs: No Vision needs: No Review of Systems Const Denies weight gain and Denies weight loss ENT Reports no additional complaints, Denies dysphagia and Denies odynophagia Card Reports no additional complaints Resp Reports no additional complaints GI Denies abdominal pain, Denies belching, Denies melena, Denies bloating, Denies change in bowel habits, Denies dysphagia, Denies excessive flatus, Denies dyspepsia, Denies heartburn, Denies diarrhea, Denies loose stools, Denies nausea, Denies odynophagia and Denies vomiting Reports no additional complaints Musc Reports no additional complaints Neuro Reports no additional complaints Psych Reports no additional complaints Endo Reports no additional complaints Physical Exam Vital Signs: Last Vital Signs Pulse 78 12/08/23 10:01 BP 126/57 L 12/08/23 10:01 Const General: healthy appearing, no acute distress and well developed Orientation/consciousness: patient oriented x3 HEENT Head: Yes normal to inspection, Yes normocephalic and Yes atraumatic Face and sinus: Yes normal facial exam Mouth: Normal oral and palatal mucosa present Throat: Yes posterior oropharynx normal, Yes tonsils normal and Yes uvula midline Eyes General: appearance normal, both eyes and all related structures Neck Neck: Yes normal visual inspection, Yes full ROM and Yes trachea midline Thyroid: Thyroid normal Resp Effort & Inspection: normal respiratory effort, able to speak in complete sentences, no tracheal deviation and symmetric chest movement Auscultation: clear to auscultation bilaterally Cardio Rate: regular rate GI Inspection: Yes normal to inspection, No distended and Yes obesity Palpation (GI): Soft to palpation, not firm, nontender and No hepatosplenomegaly present Auscultation: normal bowel sounds General: Yes no CVA tenderness Back/Spine/Pelvis Back: no CVA tenderness Skin General skin exam: elasticity normal, turgor normal and dry skin Neuro General: patient oriented x3 Psych Appearance: grossly normal Mental Status: mental status grossly normal Assessment & Plan Assessment & Plan (1) Status post colonoscopy: Code(s): Z98.890 - Other specified postprocedural states (2) Tubular adenoma of colon: Code(s): D12.6 - Benign neoplasm of colon, unspecified (3) Tubulovillous adenoma of colon: Code(s): D12.6 - Benign neoplasm of colon, unspecified Plan As mentioned above in HPI patient had tubulovillous adenoma in cecum. Unable to differentiate margins of the polyp. Will schedule patient for colonoscopy . Recommendation was made for surveillance 3-6 months. Patient denies any issues with anesthesia. Not on any anticoagulation medication. I will see patient after the procedure, sooner on as needed basis. Patient is agreeable to this plan and verbalizes understanding of instructions. He was given the opportunity to ask questions and all questions answered. Thank you for allowing me to participate in his care Medications: New bisacodyl (Dulcolax (bisacodyl)) take 4 tabs at noon the day before your colonoscopy 20 mg (4 x 5 mg) PO ONCE 1 day 4 tabs 0RF Z12.11 - Encounter for screening for malignant neoplasm of colon polyethylene glycol 3350 (Miralax) As directed by gastroenterology department at [facility] 238 grams PO ONCE 238 grams 0RF Z12.11 - Encounter for screening for malignant neoplasm of colon Coding Level of Care Code Est Pt Level 3 (96415) Diagnoses Status post colonoscopy Z98.890 Tubular adenoma of colon D12.6 Tubulovillous adenoma of colon D12.6 Time Spent (min) 25 Comment 15 minutes spent with patient and additional 10 minutes spent reviewing his records
[2023-12-08 10:01] VITALS: BP 126/57; PULSE 78
== END 2023-12-08 10:26 | disposition home or self-care (01) ==
PROVIDERS: PCP Nurse Practitioner Family; Visit Provider Nurse Practitioner Family
DX: Z98.890 Other specified postprocedural states (principal); D12.6 Benign neoplasm of colon, unspecified
CPT/HCPCS: 99213

== ENCOUNTER → 2023-12-08 09:24 | Outpatient (BNVA) | payer OTHER, SELFPAY | PROVIDERS: PCP Nurse Practitioner Family; Visit Provider Nurse Practitioner Family ==

== ENCOUNTER 2024-03-12 08:12 | Outpatient (AMB) | payer OTHER, SELFPAY ==
--- NOTE | 2024-03-12 08:12 | A.OFFVIS_ITS ---
Intake Intake Visit Reasons: 6M Med Review(Tadalafil)Confirmed Intake Note: Patient is Present today for follow up med review Urology Medication: Tadalafil, Tamsulosin Antibiotic Allergies: None Blood Thinners: None Pharmacy: [facility] Clinical Professor Required: No Allergies No Known Allergies [No Known Allergies*] Allergy (Verified 03/12/24 08:12) Medication List - Last Reconciled 03/12/24 by Remi Castro MD bisacodyl (Dulcolax (bisacodyl)) 20 mg (4 x 5 mg) PO ONCE 1 day hydroxychloroquine 200 mg PO BID polyethylene glycol 3350 (Miralax) 238 grams PO ONCE tadalafil 10 mg PO DAILY 90 days tadalafil 40 mg (2 x 20 mg) PO ONCE PRN 30 days tamsulosin 0.4 mg PO BEDTIME 90 days thiamine HCl (vitamin B1) 50 mg (1/2 x 100 mg) PO DAILY 90 days HPI HPI Comments History of Present Illness Details Yasmeen is a very pleasant male. He is a patient of . He is seen for the following urologic conditions - lower urinary tract symptoms - erectile dysfunction Telemedicine Evaluation 15 min Consultation [facility] Video 6 month follow-up for high-dose tadalafi l protocol Has continue with 10 mg daily and 40 mg on demand Exit appointment 6 months, PSA and PVR Office appointment only Lower urinary tract symptoms Progressive Mostly weakness of stream Responds well to tamsulosin Erectile dysfunction Progressive Less ability to obtain erection firm enough for penetration Failed sildenafil in the past, prior 20 mg tadalafil on demand Labs - 12/23 T 907 FT 71 P 0.3 Therapeutic plan daily medium dose with on demand tadalafil and use of vacuum pump [facility] Medical History Physical exam Erectile dysfunction Hypovitaminosis D Urine WBC increased Hypoglycemia Hydrocele in adult Lupus Lupus Malabsorption due to intolerance, not elsewhere classified Overweight (BMI 25.0-29.9) Arthritis Hydrocele Steatosis, liver Hypertension Morbid obesity Surgical History S/P urological surgery S/P laparoscopic sleeve gastrectomy History of colonoscopy H/O adenoidectomy Hx of tonsillectomy Family History Father No problems noted. Mother No problems noted. Maternal Aunt No problems noted. Brother No problems noted. Sister No problems noted. Social History Housing: Apartment Alcohol intake: never Patient Tobacco Use Status: Never used Tobacco e-Cigarette/Vaping Use: Never Used Second Hand Smoke Exposure: No service: No Current occupational status: unemployed Cognitive needs: No Hearing needs: No Vision needs: No Review of Systems Const All systems reviewed & are unremarkable except as noted in HPI and below Reports no additional complaints Resp Reports no additional complaints GI Reports no additional complaints Reports as per HPI Musc Reports no additional complaints Physical Exam Telemedicine evaluation Appropriate responses Regular breathing rate and rhythm HEENT Head: Yes normal to inspection Ears: hearing grossly normal bilaterally Eyes General: appearance normal, both eyes and all related structures Neck Neck: Yes normal visual inspection Chest Chest palpation & inspection: normal inspection of the chest Resp Effort & Inspection: normal respiratory effort and able to speak in complete sentences Assessment & Plan Assessment & Plan (1) Erectile dysfunction: Code(s): N52.9 - Male erectile dysfunction, unspecified (2) BPH loc w urin obs/LUTS: Code(s): N40.1 - Benign prostatic hyperplasia with lower urinary tract symptoms Plan Six-month follow-up PSA, PVR office Orders: Orders Prostate Specific Antigen 6 Months N40.1 - Benign prostatic hyperplasia with lower urinary tract symptoms Medications: New tadalafil 10 mg PO DAILY 90 days 90 tabs 1RF N40.1 - Benign prostatic hyperplasia with lower urinary tract symptoms Refilled tamsulosin 0.4 mg PO BEDTIME 90 days 90 caps 1RF N40.1 - Benign prostatic hyperplasia with lower urinary tract symptoms tadalafil May use up to 2 tablets on demand 40 mg (2 x 20 mg) PO ONCE 30 days PRN 60 tabs 0RF sexual activity N52.9 - Male erectile dysfunction, unspecified Patient Instructions: Imaging studies, laboratory and physical exam results were discussed and reviewed in detail. No major barriers to patient understanding were identified. An opportunity to ask questions regarding the treatment plan was provided. All questions were answered. The patient expressed understanding and agreement with the above treatment plan. The patient is aware they should contact our office by phone for worsening of their current condition or the appearance of new urologic symptoms. Compliance is encouraged with any medications and followup testing that is ordered. It is a privilege to participate in the urologic care of your patient. If you have any questions or concerns regarding treatment for the above conditions, or other urologic issues, please do not hesitate to contact me. The office telephone contact is [phone]. This note is constructed using voice recognition software. While every effort has been made to ensure accuracy cipher expert errors may have been included. Yours sincerely, Dr Remi Castro MD, [facility] - Urology Providers of Expert, Compassionate Care for the Genitourinary System Telehealth Telehealth Location of provider rendering services: practice address Location of patient: address on file Patient Identification confirmed using: Name, : Yes Telehealth method: video Patient verbally consented to treatment: Yes Patient verbally consented to billing insurance company: Yes Patient informed of any privacy concerns related to visit: Yes Minutes spent on Phone/Video with Pt.: 15 Coding Level of Care Code Tele Est Pt Level 3 (57816) Diagnoses Erectile dysfunction N52.9 BPH loc w urin obs/LUTS N40.1
== END 2024-03-12 09:07 | disposition home or self-care (01) ==
LOC: HO.HUSH 08:12
PROVIDERS: PCP Nurse Practitioner Family; Visit Provider Urology
DX: N52.9 Male erectile dysfunction, unspecified (principal); N40.1 Benign prostatic hyperplasia with lower urinary tract symptoms
CPT/HCPCS: 99213

== ENCOUNTER → 2024-03-12 08:12 | Outpatient (BNVA) | payer OTHER, SELFPAY | PROVIDERS: PCP Nurse Practitioner Family; Visit Provider Urology ==

== ENCOUNTER 2024-03-25 06:55 | Day surgery (SDC) | payer OTHER, SELFPAY ==
[2024-03-23 13:51] VITALS: BMI 33.3
--- NOTE | 2024-03-24 10:15 | HO.ANESPROP2 ---
HPI - Anesthesia Eval Consult details Narrative: 58yo M for Colonoscopy s/p Colonoscopy 10/2023 with MAC (lg polyp site) PMFSH Active Problems Active Problems: All Active Problems Obesity (BMI 30-39.9) (Acute) Screening for colon cancer (Acute) Insomnia (Acute) Thiamine deficiency (Acute) Vitamin A deficiency (Acute) Hypogonadism in male (Acute) Hyperbilirubinemia (Acute) Lupus (Acute) Pancytopenia (Acute) BPH loc w urin obs/LUTS (Acute) Physical exam (Acute) Erectile dysfunction (Acute) Hypovitaminosis D (Acute) Urine WBC increased (Acute) Hypoglycemia (Acute) S/P laparoscopic sleeve gastrectomy (Acute) Overweight (BMI 25.0-29.9) (Acute) Hydrocele in adult (Acute) Malabsorption due to intolerance, not elsewhere classified (Acute) Past Medical History Medical History Erectile dysfunction Hypovitaminosis D Urine WBC increased Hypoglycemia Hydrocele in adult Lupus Malabsorption due to intolerance, not elsewhere classified Overweight (BMI 25.0-29.9) Arthritis Steatosis, liver Hypertension Morbid obesity Family History Family History Father No problems noted. Mother No problems noted. Maternal Aunt No problems noted. Brother No problems noted. Sister No problems noted. Family history of problems with anesthesia: No Surgical History Surgical History S/P urological surgery S/P laparoscopic sleeve gastrectomy History of colonoscopy H/O adenoidectomy Hx of tonsillectomy History of Problems with Anesthesia: No Social History Social History Housing: Apartment Alcohol intake: never Patient Tobacco Use Status: Never used Tobacco e-Cigarette/Vaping Use: Never Used Second Hand Smoke Exposure: No service: No Current occupational status: unemployed Cognitive needs: No Hearing needs: No Vision needs: No Meds Allergies Allergy/AdvReac Type Severity Reaction Status Date / Time No Known Allergies Allergy Verified 03/12/24 08:12 [No Known Allergies*] Exam Height,Weight and Vital Signs: Height 5 ft 10 in Weight 105.233 kg Assessment and Plan Assessment Anesthesia Assessment: Chart Reviewed Final Anesthetic Review Family History of Problems with Anesthesia: No History of Problems with Anesthesia: No
[2024-03-25 08:56] VITALS: BP 127/67; PULSE 71; RESP 18; TEMP 36.4; O2SAT 98; BMI 33.0
[2024-03-25] MEDS: Lactated Ringers 1,000 ML 100 ML IVCONT (09:01)
--- NOTE | 2024-03-25 09:03 | MHC.SHP ---
Pre-Procedural Eval Section A - 24 Hr Update-Section A only Date of Service: 03/25/24 Section B - Complete if H&P > 30 days Chief Complaint: Personal history of colonic polyps Relevant Family History (Specify if Yes): No Relevant Social History: None Present Medications: see Short Stay Collaborative assessment Medical History: Significant History (Erectile dysfunction Hypovitaminosis D Urine WBC increased Hypoglycemia Hydrocele in adult Lupus Malabsorption due to intolerance, not elsewhere classified Overweight (BMI 25.0-29.9) Arthritis Steatosis, liver Hypertension Morbid obesity) History of Previous Operations: Relevant previous surgery/procedure and date(s) (S/P urological surgery S/P laparoscopic sleeve gastrectomy History of colonoscopy H/O adenoidectomy Hx of tonsillectomy) Allergies: Allergies Allergy/AdvReac Type Severity Reaction Status Date / Time No Known Allergies Allergy Verified 03/12/24 08:12 [No Known Allergies*] Review of Systems Sugical H&P ROS: Negative: Constitution, Cardiovascular, Respiratory, Neurological, Psychiatric, Hem-Onc, Allergic/Immunologic, Gastrointestinal, Genitourinary, Musculoskeletal, Integumentary, Endocrine and Eyes/Ears/Nose/Throat Exam Surgical H&P Exam: Normal: HEENT, Normal: Heart, Normal: Lungs, Normal: Extremities, Normal: Abdomen, Normal: Skin and Normal: Neurological Plan Diagnosis/Plan: Unchanged I have reviewed the history and physical and performed a pertinent physical examination on my patient. No changes have occurred unless specified. Time Spent With Patient Time: Total time managing care of this patient today ____ minutes.
--- NOTE | 2024-03-25 09:18 | HO.ANESPROP2 ---
[facility] Active Problems Active Problems: All Active Problems Obesity (BMI 30-39.9) (Acute) Screening for colon cancer (Acute) Insomnia (Acute) Thiamine deficiency (Acute) Vitamin A deficiency (Acute) Hypogonadism in male (Acute) Hyperbilirubinemia (Acute) Lupus (Acute) Pancytopenia (Acute) BPH loc w urin obs/LUTS (Acute) Physical exam (Acute) Erectile dysfunction (Acute) Hypovitaminosis D (Acute) Urine WBC increased (Acute) Hypoglycemia (Acute) S/P laparoscopic sleeve gastrectomy (Acute) Overweight (BMI 25.0-29.9) (Acute) Hydrocele in adult (Acute) Malabsorption due to intolerance, not elsewhere classified (Acute) Past Medical History Medical History Erectile dysfunction Hypovitaminosis D Urine WBC increased Hypoglycemia Hydrocele in adult Lupus Malabsorption due to intolerance, not elsewhere classified Overweight (BMI 25.0-29.9) Arthritis Steatosis, liver Hypertension Morbid obesity Functional capacity: independent ambulation Family History Family History Father No problems noted. Mother No problems noted. Maternal Aunt No problems noted. Brother No problems noted. Sister No problems noted. Family history of problems with anesthesia: No Surgical History Surgical History S/P urological surgery S/P laparoscopic sleeve gastrectomy History of colonoscopy H/O adenoidectomy Hx of tonsillectomy History of Problems with Anesthesia: No Social History Social History Housing: Apartment Alcohol intake: never Patient Tobacco Use Status: Never used Tobacco e-Cigarette/Vaping Use: Never Used Second Hand Smoke Exposure: No Have you been hit, kicked, punched, or otherwise hurt by someone within the past year? If so, by whom?: No Are you DNR?: No Advance Directives: No Advance Directives Information Provided: Yes Advance Directives on File: No Recently lost weight without trying: No Eating poorly because of decreased appetite: No Nutrition Risks: No Nutritional Risk Poor oral hygiene: No service: No Current occupational status: unemployed Cognitive needs: No Hearing needs: No Vision needs: No Meds Allergies Allergy/AdvReac Type Severity Reaction Status Date / Time No Known Allergies Allergy Verified 03/12/24 08:12 [No Known Allergies*] Active Medications: Current Medications Lactated Ringer's (Lr) 1,000 mls @ 100 mls/hr IVCONT .Q10H TOMMY Last Admin: 03/25/24 09:01 Dose: 100 mls/hr Exam Height,Weight and Vital Signs: Height 5 ft 10 in Weight 104.326 kg Last Vital Signs Temp 97.6 F 03/25/24 08:56 Pulse 71 03/25/24 08:56 Resp 18 03/25/24 08:56 BP 127/67 03/25/24 08:56 Pulse Ox 98 03/25/24 08:56 O2 Del Method Room Air 03/25/24 08:56 Airway Mallampati Class: III TM Dist: >3cm Neck ROM: Full Heart: RRR Lungs: CTA Assessment and Plan Assessment Anesthesia Assessment: Anesthesia Plan Discussed Final Anesthetic Review Family History of Problems with Anesthesia: No History of Problems with Anesthesia: No NPO: Yes ASA Class: III Final Preanesthetic Review: Meds/Allgs Chart Reviewed, Consent Obtained/Reviewed and Anes Risks/Benef Reviewed Patient Risk: Intermediate Procedure Risk: Low Anesthetic Plan Anesthetic Plan: MAC: Disposition: Standard PACU
--- NOTE | 2024-03-25 09:39 | W.PM.OPN ---
Operative Note Operative Note Date of Service: 03/25/24 Narrative: Operative Information Procedure Description: Colonoscopy Indication: hx of polyps Anesthesia: MAC COLONOSCOPY Instrument: Olympus variable stiffness pediatric scope 190L Colonoscopy Monitoring: Vital signs and clinical assessment, continuous EKG monitoring, Pulse oximetry, Carbon Dioxide monitoring and blood pressure monitoring were done throughout the procedure. Colon withdrawal time was 11 minutes. Procedure: The patient was placed in the left lateral decubitis position and pre-procedure medications were administered. After a digital rectal examination of the ano-rectum, the video colonoscope was inserted into the rectum and advanced through the colon to the cecum/TI. The colonoscope was slowly withdrawn in a retrograde panoramic fashion and the colon mucosa was carefully examined including a retroflexed view of the rectum. Findings and interventions are described below. Procedure Difficulty: easy Findings: Terminal Ileum-normal Cecum:normal Ascending Colon: 10 mm sessile polyp removed with cold snare Transverse Colon -normal Descending Colon:normal Sigmoid Colon: normal Rectum: Retroflexion with small internal hemorrhoids seen, grade I Anorectum - normal Intervention: cold snare Colon preparation: [place] Bowel Preparation Scale Right colon; 2 Transverse colon: 3 Left colon; 3 (0 = Unprepared colon segment with mucosa not seen due to solid stool that cannot be cleared. 1 = Portion of mucosa of the colon segment seen, but other areas of the colon segment not well seen due to staining, residual stool and/or opaque liquid. 2 = Minor amount of residual staining, small fragments of stool and/or opaque liquid, but mucosa of colon segment seen well. 3 = Entire mucosa of colon segment seen well with no residual staining, small fragments of stool or opaque liquid) Impression and Post Procedure Diagnosis: colon polyp internal hemorrhoids Plan: High fiber diet leaflet Avoid straining at stool, epsom salts and sitz bath, anusol supps or cream Repeat Colonoscopy in 1-2 years or earlier if clinically indicated Above findings were reviewed with the patient and relevant handouts were provided if indicated.
[2024-03-25 09:41] VITALS: BP 110/65; PULSE 68; RESP 16; TEMP 36.1; O2SAT 98
[2024-03-25 09:56] VITALS: BP 120/73; PULSE 66; RESP 18; TEMP 36.1; O2SAT 98
--- NOTE | 2024-03-25 10:32 | HO.POSTANES ---
Post Anesthesia Evaluation Post Anesthesia Evaluation Date of Service: 03/25/24 Vital Signs: Vital Signs Temp Pulse Resp BP Pulse Ox O2 Del Method 03/25/24 09:56 97 F 66 18 120/73 98 Room Air 03/25/24 09:41 97 F 68 16 110/65 98 Room Air 03/25/24 08:56 97.6 F 71 18 127/67 98 Room Air Anesthesia: Monitored Mental Status: Awake Pain Control: Satisfactory Nausea/Vomiting: None Hydration: Adequate Anesthesia-Related Issues: No Anes. Related Issues
== END 2024-03-25 10:45 | disposition home or self-care (01) ==
PROVIDERS: PCP Internal Medicine; Visit Provider Internal Medicine Gastroenterology
PROC: 0DJD8ZZ Inspection of Lower Intestinal Tract, Via Natural or Artificial Opening Endoscopic (ICD-10-PCS; CPT 45378; principal; 2024-03-25 09:40)
DX: Z12.11 Encounter for screening for malignant neoplasm of colon (principal); Z86.010 Personal history of colon polyps; D12.2 Benign neoplasm of ascending colon; K62.1 Rectal polyp; K64.0 First degree hemorrhoids; K90.49 Malabsorption due to intolerance, not elsewhere classified; N43.3 Hydrocele, unspecified; N52.9 Male erectile dysfunction, unspecified; M32.9 Systemic lupus erythematosus, unspecified; E55.9 Vitamin D deficiency, unspecified; E16.2 Hypoglycemia, unspecified; Z98.890 Other specified postprocedural states
CPT/HCPCS: 45385; 88305; J1596; J2704

== ENCOUNTER → 2024-03-25 06:55 | Outpatient (BNV) | payer OTHER, SELFPAY | PROVIDERS: PCP Internal Medicine; Visit Provider Internal Medicine Gastroenterology | DX: Z12.11 Encounter for screening for malignant neoplasm of colon (principal); Z86.010 Personal history of colon polyps; D12.2 Benign neoplasm of ascending colon; K64.0 First degree hemorrhoids | CPT/HCPCS: 45385 ==

== ENCOUNTER 2024-06-09 16:16 | Outpatient (AMB) | payer OTHER, SELFPAY ==
--- NOTE | 2024-06-09 16:19 | MHC.PC.OV ---
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 Accompanied by: Self / Same As Patient Allergies No Known Allergies [No Known Allergies*] Allergy (Verified 06/09/24 16:37) Medication List - Last Reconciled 06/09/24 by Caroline Wilson MD bisacodyl (Dulcolax (bisacodyl)) 20 mg (4 x 5 mg) PO ONCE 1 day hydroxychloroquine 200 mg PO BID polyethylene glycol 3350 (Miralax) 238 grams PO ONCE tadalafil 10 mg PO DAILY 90 days tadalafil 40 mg (2 x 20 mg) PO ONCE PRN 30 days tamsulosin 0.4 mg PO BEDTIME 90 days thiamine HCl (vitamin B1) 50 mg (1/2 x 100 mg) PO DAILY 90 days Tobacco use date assessed: 06/09/24 Dental Screening Dental Screen Date: 06/09/24 Did you have a dental visit in the last 12 months?: Yes Did you have a dental problem in the last 6 months where you did not have access to dental care?: No Was dental information given to patient?: Patient has dentist HPI HPI Comments History of Present Illness Details This is a 58-year-old male with pancytopenia, lupus, erectile dysfunction and low vitamin-D that comes today for follow-up on his conditions. He is pancytopenia is most likely secondary to lupus and has been stable. Lupus is follow by Rheumatology and has been well control with hydroxychloroquine. On tadalafil for erectile dysfunction. On vitamin-D supplements for his low vitamin-D. He denies any chest pain or shortness on breath. No acute complaint. [facility] Medical History (Updated 06/09/24 @ 18:48 by Caroline Wilson MD) Erectile dysfunction Hypovitaminosis D Urine WBC increased Hypoglycemia Hydrocele in adult Lupus Malabsorption due to intolerance, not elsewhere classified Overweight (BMI 25.0-29.9) Arthritis Steatosis, liver Hypertension Morbid obesity Surgical History S/P urological surgery S/P laparoscopic sleeve gastrectomy History of colonoscopy H/O adenoidectomy Hx of tonsillectomy Family History Father No problems noted. Mother No problems noted. Maternal Aunt No problems noted. Brother No problems noted. Sister No problems noted. Social History Housing: Apartment Alcohol intake: never Patient Tobacco Use Status: Never used Tobacco e-Cigarette/Vaping Use: Never Used Second Hand Smoke Exposure: No service: No Current occupational status: unemployed Cognitive needs: No Hearing needs: No Vision needs: No Questionnaire PHQ-9 Over the last 2 weeks, how often have you been bothered by any of the following problems? 1. Little interest or pleasure in doing things: not at all 2. Feeling down, depressed, or hopeless: not at all 3. Trouble falling or staying asleep, or sleeping too much: not at all 4. Feeling tired or having little energy: not at all 5. Poor appetite or overeating: not at all 6. Feeling bad about yourself - or that you are a failure or have let yourself or your family down: not at all 7. Trouble concentrating on things, such as reading the newspaper or watching television: not at all 8. Moving or speaking so slowly that other people could have noticed. Or the opposite - being so fidgety or restless that you have been moving around a lot more than usual: not at all 9. Thoughts that you would be better off or of hurting yourself in some way: not at all Total score: 0 Depression Screening Interpretation: Negative Depression Screening Done: Yes 50011 - PHQ-9 Billing: Yes Source: Developed by Drs. Servando Grimes, Umm Helms, Anthony Heredia and colleagues, with an educational ebony from [employer]. Thrive Questionnaire Date Thrive assessed: 06/09/24 I am a: Patient What is your living situation today?: I have a steady place to live Within the past 12 months, did the food you bought not last and you didn't have the money to get more?: Never true Within the past 12 months, did you worry whether your food would run out before you got money to buy more?: Never true Do you have trouble paying for medicines?: No Do you have trouble getting transportation to medical appointments?: No Do you have trouble paying your heating and electricity bill?: No Do you have trouble taking care of your child, family member or friend?: No Do you have trouble with day-to-day activities such as bathing, preparing meals, shopping, managing finances, etc.?: No Are you currently unemployed and looking for a job?: No Are you interested in more education?: No Please select the resources that you would like help with: None Currently or been in a relationship where the following occur: No concerns reported THRIVE Score: 0 AUDIT C Alcohol Use Questionnaire (AUDIT-C) 1. How often do you have a drink containing alcohol?: Never 3. How often do you have six or more drinks on one occasion?: Never Total Score: 0 Score Reviewed/Action Taken: No PINO-7 AMB Questionnaire PINO-7 Date PINO - 7 assessed: 06/09/24 Feeling nervous, anxious, or on edge: 0 = Not at all Not being able to stop or control worryin = Not at all Worrying too much about different things: 0 = Not at all Trouble relaxin = Not at all Being so restless that it is hard to sit still: 0 = Not at all Becoming easily annoyed or irritable: 0 = Not at all Feeling afraid as if something awful might happen: 0 = Not at all Total PINO-7 score (0-4 normal; 5-9 mild; 10-14 moderate; 15-21 severe): 0 Source: Developed by Drs. Servando Grimes, Umm Helms, Anthony Heredia and colleagues, with an educational ebony from [employer]. PINO-7 Assessment Billing PINO-7 Assessment Tool: PINO-7 Assessment 66336 Review of Systems Const All systems reviewed & are unremarkable except as noted in HPI and below Card Denies chest pain at rest, Denies chest pain with activity, Denies edema, Denies irregular heart rhythm, Denies claudication, Denies dyspnea, Denies dyspnea on exertion, Denies orthopnea, Denies paroxysmal nocturnal dyspnea and Denies slow heart rate Resp Denies cough, Denies dyspnea and Denies dyspnea on exertion Physical exam (Primary Care) Vital Signs: Last Vital Signs Pulse 82 06/09/24 16:22 BP 110/74 06/09/24 16:22 Pulse Ox 98 06/09/24 16:22 Oxygen Delivery Method Room Air 06/09/24 16:22 BMI result Body Mass Index 35.5 Tobacco/Smoking Status: Tobacco use Status Tobacco use date assessed 06/09/24 06/09/24 16:28 Patient Tobacco Use Status Never used Tobacco 06/09/24 16:20 e-Cigarette/Vaping Use Never Used 06/09/24 16:20 PHQ-9: PHQ-9 Score PHQ-9: Total score 0 06/09/24 16:40 Depression Screening Interpretation: Negative Thrive Assessment: Date of Thrive Assessment Date Thrive assessed 06/09/24 06/09/24 16:28 Currently or been in a relationship where the following occur: No concerns reported Resp Effort & Inspection: normal respiratory effort Auscultation: clear to auscultation bilaterally Cardio Jugular venous distension: no JVD Rate: regular rate Rhythm: regular rhythm Heart sounds: S1 normal heart sound present and S2 normal heart sound present Extrem General: Yes full ROM Assessment and Plan Assessment & Plan (1) Lupus: Code(s): M32.9 - Systemic lupus erythematosus, unspecified Plan: Continue hydroxychloroquine. Follow-up with rheumatology. (2) Pancytopenia: Code(s): D61.818 - Other pancytopenia Plan: Continue hydroxychloroquine. Follow-up with rheumatology. (3) Hypovitaminosis D: Code(s): E55.9 - Vitamin D deficiency, unspecified Plan: Continue vitamin-D supplements. (4) Erectile dysfunction: Code(s): N52.9 - Male erectile dysfunction, unspecified Qualifiers: Erectile dysfunction type: due to other cause Qualified Code(s): N52.8 - Other male erectile dysfunction Plan: Continue tadalafil. Orders: Orders Lipid Panel 4 Months E78.5 - Hyperlipidemia, unspecified Comprehensive [place]. Panel Fast 4 Months M32.9 - Systemic lupus erythematosus, unspecified Medications: New cholecalciferol (vitamin D3) 25 mcg PO DAILY 90 caps 1RF 90 days Coding Level of Care Code Est Pt Level 4 (54737) Complex EM visit Add On G2211 Diagnoses Lupus M32.9 Pancytopenia D61.818 Hypovitaminosis D E55.9 Other male erectile dysfunction N52.8 Erectile dysfunction type: due to other cause Additional Codes PINO-7 Assessment Billing - PINO-7 Assessment Tool: PINO-7 Assessment 27578 ([id number]) Time Spent (min) 22
[2024-06-09 16:22] VITALS: BP 110/74; PULSE 82; O2SAT 98; BMI 35.5
== END 2024-06-09 16:46 | disposition home or self-care (01) ==
PROVIDERS: PCP Internal Medicine; Visit Provider Internal Medicine
DX: M32.9 Systemic lupus erythematosus, unspecified (principal); D61.818 Other pancytopenia; E55.9 Vitamin D deficiency, unspecified; N52.8 Other male erectile dysfunction
CPT/HCPCS: 99214

== ENCOUNTER 2024-06-22 08:31 | Emergency (ER) | payer OTHER, SELFPAY ==
--- NOTE | 2024-06-22 | ECG_ITS ---
Test Reason : dizziness Blood Pressure : / mmHG Vent. Rate : 063 BPM Atrial Rate : 063 BPM P-R Int : 254 ms QRS Dur : 086 ms QT Int : 410 ms P-R-T Axes : 023 -05 001 degrees QTc Int : 419 ms Sinus rhythm with 1st degree A-V block Otherwise normal ECG When compared with ECG of 29-APR-2019 22:08, AR interval has increased Referred By: Generic ED Physician Electronically Signed By:HIRAM ROJO
[2024-06-22 08:54] VITALS: BMI 35.7
[2024-06-22 08:55] LABS: MANUAL DIFF FLAG NO
[2024-06-22 08:58] LABS: Eosinophils Percent Auto 1.3 % (0-4); Hematocrit 38.5 % (42.0-52.0); Hemoglobin 13.2 g/dl (14.0-18.0); Imm Gran Abs Auto 0.01 X10*3/uL (0.00-0.03); Imm Gran Pct Auto 0.3 % (0.0-0.4); Lymphocytes Absolute Auto 0.7 X10*3/uL (1.2-4.9); Lymphocytes Percent Auto 24.7 % (20-40); Mean Corpuscular HGB Conc 34.3 g/dl (31.0-36.0); Mean Corpuscular Hemoglobin 27.1 pg (27.0-33.0); Mean Corpuscular Volume 79.1 fL (80.0-98.0); Mean Platelet Volume 9.6 fL (9.4-12.4); Monocytes Absolute Auto 0.4 X10*3/uL (0.1-1.2); Neutrophils Absolute Auto 1.8 x10*3/uL (2.0-8.3); Neutrophils Percent Auto 60.7 % (45-73); Platelet Count 107 X10*3/uL (160-400); Red Blood Count 4.87 X10*6/uL (4.60-5.80); Red Cell Distribution Width 16.1 % (11.0-16.0)
--- NOTE | 2024-06-22 09:03 | PC.NURSE ---
patient from home, states last night he went to go to bed and got dizzy, states the same thing happened to him again this morning, denies chest pain, shortness of breath, or other symptoms, states he still feels a little dizzy now but it is not as bad. patient alert and oriented x4, denies any sick contacts or other symptoms, states he has a hx of anemia, states if he is laying still he feels okay, it was when he got out of bed that he felt more dizzy. patient placed on playground monitor, 18g PIV placed by this Rn in RAC. EKG completed by EDT. patient not complaining of anything at this time. patinet with strong strength bilaterally in all extremities. neuros negative. awaiting MD estrada.
[2024-06-22 09:05] VITALS: BP 128/70; PULSE 67; RESP 17; TEMP 36.7; O2SAT 100
[2024-06-22 09:10] LABS: Glucose, Whole Blood 89 mg/dL (60-115)
[2024-06-22 09:31] LABS: Alanine Aminotransferase 23 U/L (0-40); Albumin Level 4.4 g/dL (3.5-5.0); Alkaline Phosphatase 63 U/L (39-117); Anion Gap 10 (12-20); Aspartate Amino Transferase 29 U/L (5-37); Bilirubin Total 0.8 mg/dL (0.0-1.0); Blood Urea Nitrogen 22 mg/dL (9-16); Calcium 9.8 mg/dL (8.4-10.2); Carbon Dioxide 26 mmol/L (22-29); Chloride 107 mmol/L (96-108); Creatinine Clr Calc Pharmacy 105.7; Estimated Glomerular Filt Rate > 60; Glucose Random 94 mg/dL (60-115); Potassium 4.2 mmol/L (3.3-5.1); Sodium 139 mmol/L (135-145); Total Protein 7.7 g/dL (6.5-8.0)
--- NOTE | 2024-06-22 12:29 | ED_ITS ---
HPI - Dizziness General Chief Complaint: Dizziness Stated Complaint: Dizziness, fatigue Time Seen by Provider: 06/22/24 12:27 Source: patient and family Mode of arrival: ambulatory Limitations: no limitations History of Present Illness ED Provider: Dr. Payam Ly HPI Narrative: 58-year-old male with a history of lupus, gastric sleeve surgery 5 years prior with malabsorption syndrome who presents emergency department for evaluation of sudden onset of dizziness. The patient states that last night around 21:00 hours he developed dizziness after getting out of bed to go to the bathroom. He describes the dizziness as ?house spinning ?. He states that if he rests these spinning sensation goes away completely but with any change in position this spinning returns. The patient denied any associated nausea, vomiting, numbness, weakness, change in his vision, change in his speech or difficulty with word finding. This is the patient's 1st episode of vertigo. He did not take any medications prior to coming to the emergency department. He denied fever, chills, chest pain, shortness of breath. Related Data Previous Rx's ?Medication ?Instructions ?Recorded hydroxychloroquine 200 mg tablet 200 mg PO BID #60 tabs 05/08/21 thiamine HCl (vitamin B1) 100 mg 50 mg (1/2 x 100 mg) PO DAILY 90 12/11/22 tablet days #45 tabs bisacodyl 5 mg tablet,delayed 20 mg (4 x 5 mg) PO ONCE 1 day #4 03/09/24 release (Dulcolax (bisacodyl)) tabs polyethylene glycol 3350 17 238 g PO ONCE #238 grams 03/09/24 gram/dose oral powder (Miralax) tadalafil 10 mg tablet 10 mg PO DAILY 90 days #90 tabs 03/12/24 tadalafil 20 mg tablet 40 mg (2 x 20 mg) PO ONCE PRN 03/12/24 sexual activity 30 days #60 tabs tamsulosin 0.4 mg capsule 0.4 mg PO BEDTIME 90 days #90 caps 03/12/24 cholecalciferol (vitamin D3) 25 25 mcg PO DAILY 90 days #90 caps 06/09/24 mcg (1,000 unit) capsule meclizine 25 mg tablet (Dramamine 25 mg PO TID PRN dizziness #20 tabs 06/22/24 Less Drowsy) Allergies Allergy/AdvReac Type Severity Reaction Status Date / Time No Known Allergies Allergy Verified 06/22/24 08:56 [No Known Allergies*] [facility] Past Medical History [facility] Narrative: Social history: Patient denies tobacco, alcohol and drug use. Medical History Erectile dysfunction Hypovitaminosis D Urine WBC increased Hypoglycemia Hydrocele in adult Lupus Malabsorption due to intolerance, not elsewhere classified Overweight (BMI 25.0-29.9) Arthritis Steatosis, liver Hypertension Morbid obesity Surgical History S/P urological surgery S/P laparoscopic sleeve gastrectomy History of colonoscopy H/O adenoidectomy Hx of tonsillectomy Family History Family History Father No problems noted. Mother No problems noted. Maternal Aunt No problems noted. Brother No problems noted. Sister No problems noted. Social History Social History Housing: Apartment Alcohol intake: never Patient Tobacco Use Status: Never used Tobacco Smoked in Last 30 Days: No e-Cigarette/Vaping Use: Never Used Second Hand Smoke Exposure: No Use of substances other than those prescribed or required for medical reasons: No Advance Directives: No Advance Directives Information Provided: Yes Do you have a plan to hurt others: No Plan service: No Current occupational status: unemployed Cognitive needs: No Hearing needs: No Vision needs: No Physical Exam 2 Vital Signs: Vital Signs: Last Vital Signs Temp 98.1 F 06/22/24 09:05 Pulse 67 06/22/24 09:05 Resp 17 06/22/24 09:05 BP 128/70 06/22/24 09:05 Pulse Ox 100 06/22/24 09:05 O2 Del Method Room Air 06/22/24 09:05 BMI result Body Mass Index 35.7 Vital signs were normal Exam: General: Awake, alert in no distress Head: Normocephalic, atraumatic EENT: PERRL, Lids normal, sclera normal, conjunctiva normal, nose normal , ears normal, throat without erythema or exudates, lateral nystagmus Neck: Supple, no adenopathy Lung: breath sounds symmetric, no wheezing, rales or rhonchi Chest: symmetric movement, nontender Heart: regular rate and rhythm, normal S1, S2 no murmurs or rubs Abdomen: soft, non-tender, nondistended, normal bowel sounds Back: no vertebral tenderness, no CVAT Extremities: no deformities, moves all extremities symmetrically Neuro: Awake, alert, oriented, normal speech, cranial nerves intact, moves all extremities symmetrically, normal kqjhfq-vk-[id number]-finger, normal rapid finger movement, normal heel to sanders, normal gait Psych: Pleasant, cooperative Medical Decision Making Medical Decision Making MDM Narrative: 58-year-old male with a history of lupus, gastric sleeve surgery 5 years prior with malabsorption syndrome who presents emergency department for evaluation of sudden onset of dizziness since 21:00. Patient has periods where he has no dizziness when he is resting and the dizziness comes on with position change. Patient's review of systems otherwise unremarkable. Vital signs were normal. Physical examination did reveal nystagmus and vertigo with position change. Differential diagnosis: ?Includes but is not limited to benign positional vertigo, cerebellar stroke, electrolyte abnormalities, anemia Following evaluation was ordered: CBC, CMP, point of care glucose, 12 EKG Patient was initially treated with the following: Meclizine 25 mg orally Course: My interpretation patient's laboratory evaluation is as follows: WBC low 3000, platelet count low 107,000-this is chronic most likely caused by his lupus. Absolute neutrophil count was 1.8 which is normal. H&H was normal 13 and 38.5. BUN elevated 22 with a normal creatinine 0.97. LFTs were normal. Twelve EKG revealed no significant abnormalities. Patient's presentation is consistent with benign positional vertigo and I did discuss this with him. Patient was given meclizine 25 mg orally in the emergency department . The patient was given a prescription for meclizine 25 mg pills, 1 pill every 6 hours as needed for dizziness. He was given printed and verbal instructions. He was also given a work note Admission/Observation Consideration of admission/observation: Escalation of care including admission/observation considered Lab Data [facility] Lab Attestation statement: I reviewed the patient's lab results. 06/22/24 08:51 06/22/24 08:51 Labs: Lab Results 07/23/24 07/23/24 Range/Units 08:51 09:01 WBC 3.0 L (4.8-10.8) X10*3/uL RBC 4.87 (4.60-5.80) X10*6/uL Hgb 13.2 L (14.0-18.0) g/dl Hct 38.5 L (42.0-52.0) % MCV 79.1 L (80.0-98.0) fL MCH 27.1 (27.0-33.0) pg MCHC 34.3 (31.0-36.0) g/dl RDW 16.1 H (11.0-16.0) % Plt Count 107 L (160-400) X10*3/uL MPV 9.6 (9.4-12.4) fL Immature Gran % (Auto) 0.3 (0.0-0.4) % Neut % (Auto) 60.7 (45-73) % Lymph % (Auto) 24.7 (20-40) % [place] % (Auto) 13.0 H (2-11) % Eos % (Auto) 1.3 (0-4) % Baso % (Auto) 0.0 (0-2) % Lymph # (Auto) 0.7 L (1.2-4.9) X10*3/uL [place] # (Auto) 0.4 (0.1-1.2) X10*3/uL Eos # (Auto) 0.0 (0.0-0.4) X10*3/uL Baso # (Auto) 0.0 (0.0-0.2) X10*3/uL Abs Immat Gran (auto) 0.01 (0.00-0.03) X10*3/uL Absolute Neuts (auto) 1.8 L (2.0-8.3) x10*3/uL Absolute Nucleated RBC 0.000 (0.0-0.012) X10*3/uL Nucleated RBC % (auto) 0.0 (0.0-0.2) /100WBC Sodium 139 (135-145) mmol/L Potassium 4.2 (3.3-5.1) mmol/L Chloride 107 (96-108) mmol/L Carbon Dioxide 26 (22-29) mmol/L Anion Gap 10 L (12-20) BUN 22 H (9-16) mg/dL Creatinine 0.97 (0.5-1.4) mg/dL Estim Creat Clear Calc 105.7 Estimated GFR > 60 POC Glucose 89 (60-115) mg/dL Random Glucose 94 (60-115) mg/dL Calcium 9.8 (8.4-10.2) mg/dL Total Bilirubin 0.8 (0.0-1.0) mg/dL AST 29 (5-37) U/L ALT 23 (0-40) U/L Alkaline Phosphatase 63 (39-117) U/L Total Protein 7.7 (6.5-8.0) g/dL Albumin 4.4 (3.5-5.0) g/dL Independent Interpretation I performed an independent interpretation of an: EKG Interpretation: My independent interpretation patient's 12 EKG done at 08:48 hours is as follows: Sinus rhythm with a rate of 63, first-degree AV block with a IN interval of 254 milliseconds, normal QRS duration, normal QTC interval, no ST segment elevation, no ST segment depression, inverted T-wave in lead 3, no other significant T-wave abnormalities, no PACs, no PVCs Independent Historian Clinical information obtained from an independent historian. History obtained from or confirmed by: Spouse Prescription Management I considered prescription management with: Other (Anti vertigo medication- meclizine) Discharge Plan Discharge Clinical Impression: Benign paroxysmal positional vertigo Patient Disposition: Home, Self-Care Instructions: Benign Paroxysmal Positional Vertigo (ED) Additional Instructions: Your blood work did reveal a low white blood count low platelet count but this is chronic in his most likely related to her lupus. You were not anemic. Your blood chemistries looked normal. Your liver tests were normal. Your EKG was unremarkable. Your symptoms are consistent with benign positional vertigo which is malfunction of the balance mechanism in your inner ear. This is sometimes caused by a viral infection and sometimes be do not know the cause of vertigo. The dizziness can last up to 2 weeks patient usually bad for the 1st 2-3 days and then gradually gets better. Take meclizine 25 mg pills, 1 pill 3 times a day for the next 3 days for dizziness then as needed for dizziness. ?This medication will make you sleepy. ?Do not drive or work while taking this medication. Follow-up with your doctor in 2 days. Please return to the emergency department if your symptoms get worse or if you develop any symptoms that are concerning to you. Please see the work note Prescriptions: New meclizine [Dramamine Less Drowsy] 25 mg tablet 25 mg PO TID PRN (Reason: dizziness) Qty: 20 0RF No Action hydroxychloroquine 200 mg tablet 200 mg PO BID Qty: 60 5RF thiamine HCl (vitamin B1) 100 mg tablet 50 mg PO DAILY 90 Days Qty: 45 1RF bisacodyl [Dulcolax (bisacodyl)] 5 mg tablet,delayed release (DR/EC) 20 mg PO ONCE 1 Days Qty: 4 0RF Rx Instructions: take 4 tabs at noon the day before your colonoscopy polyethylene glycol 3350 [Miralax] 17 gram/dose powder 238 g PO ONCE Qty: 238 0RF Rx Instructions: As directed by gastroenterology department at [facility] cholecalciferol (vitamin D3) 25 mcg (1,000 unit) capsule 25 mcg PO DAILY 90 Days Qty: 90 1RF tamsulosin 0.4 mg capsule 0.4 mg PO BEDTIME 90 Days Qty: 90 1RF tadalafil 20 mg tablet 40 mg PO ONCE PRN (Reason: sexual activity) 30 Days Qty: 60 0RF Rx Instructions: May use up to 2 tablets on demand tadalafil 10 mg tablet 10 mg PO DAILY 90 Days Qty: 90 1RF Stand Alone Forms: Work/School Release Print Language: Sami
[2024-06-22 13:19] VITALS: BP 128/70; PULSE 67; RESP 17; TEMP 36.7; O2SAT 100
[2024-06-22] MEDS: Meclizine HCl 25 MG TABLET PO (13:23)
== END 2024-06-22 13:26 | disposition home or self-care (01) ==
PROVIDERS: Emergency Provider Emergency Medicine Emergency Medical Services; PCP Internal Medicine
DX: H81.10 Benign paroxysmal vertigo, unspecified ear (principal); I10 Essential (primary) hypertension; M32.9 Systemic lupus erythematosus, unspecified
CPT/HCPCS: 36415; 80053; 82947; 85025; 93005; 99283; 99285

== ENCOUNTER → 2024-06-22 08:48 | Outpatient (BNV) | payer OTHER, SELFPAY | PROVIDERS: Emergency Provider Emergency Medicine Emergency Medical Services; PCP Internal Medicine; Visit Provider Internal Medicine | DX: I44.0 Atrioventricular block, first degree (principal) | CPT/HCPCS: 93010 ==

== ENCOUNTER 2024-12-21 13:50 | Outpatient (AMB) | payer OTHER, SELFPAY ==
--- NOTE | 2024-12-21 13:53 | A.OFFVIS_ITS ---
Intake Visit Reasons: PSA/PVR(psa?) Intake Note: Patient is present for PSA/PVR Urology Medication:TADALAFIL,TAMSULOSIN Antibiotic Allergy:NONE Blood Thinner:NONE Todays PVR:31ML'S Director Of Litigation Required: No Allergies No Known Allergies [No Known Allergies*] Allergy (Verified 12/21/24 13:54) HPI Comments Details: Yasmeen is a very pleasant male. He is a patient of . He is seen for the following urologic conditions - lower urinary tract symptoms - erectile dysfunction Six-month follow-up ED with high-dose tadalafil protocol Has continue with 10 mg daily and 40 mg on demand Lower urinary tract symptoms Progressive Mostly weakness of stream Responds well to tamsulosin Erectile dysfunction Progressive Less ability to obtain erection firm enough for penetration Failed sildenafil in the past, prior 20 mg tadalafil on demand Labs - 12/23 T 907 FT 71 P 0.3, 07/24 P 0.27 Therapeutic plan daily medium dose with on demand tadalafil and use of vacuum pump [facility] Medical History Erectile dysfunction Hypovitaminosis D Urine WBC increased Hypoglycemia Hydrocele in adult Lupus Malabsorption due to intolerance, not elsewhere classified Overweight (BMI 25.0-29.9) Arthritis Steatosis, liver Hypertension Morbid obesity Surgical History S/P urological surgery S/P laparoscopic sleeve gastrectomy History of colonoscopy H/O adenoidectomy Hx of tonsillectomy Family History Father No problems noted. Mother No problems noted. Maternal Aunt No problems noted. Brother No problems noted. Sister No problems noted. Social History Housing: Apartment Alcohol intake: never Patient Tobacco Use Status: Never used Tobacco e-Cigarette/Vaping Use: Never Used Second Hand Smoke Exposure: No service: No Current occupational status: unemployed Cognitive needs: No Hearing needs: No Vision needs: No Office Procedures Post Void Residual Post Residual Void Post Void Residual (PVR): 31 [id number]-[id number] Void Residual by ultrasound Results AMB Urinalysis, Automated UA Leukoctes 0 Logan/uL Last Edit by MARS Herrera on 12/21/24 14:03 UA Nitrite Negative Last Edit by Olivier Valdez [facility] on 12/21/24 14:03 UA Urobilinogen 0.2 mg/dL Last Edit by MARS Herrera on 12/21/24 14:0 3 UA Protein 0 mg/dL Last Edit by Olivier Valdez [facility] on 12/21/24 14:03 UA pH 6.0 Last Edit by Olivier Valdez [facility] on 12/21/24 14:03 UA Blood 0 Evlis/uL Last Edit by Olivier Valdez [facility] on 12/21/24 14:03 UA Specific [place] 1.015 Last Edit by Olivier Valdez [facility] on 12/21/24 14: 03 UA Ketone Negative Last Edit by Olivier Valdez [facility] on 12/21/24 14:03 UA Bilirubin 0 mg/dL Last Edit by Olivier Valdez [facility] on 12/21/24 14:03 UA Glucose 0 mg/dL Last Edit by Olivier Valdez [facility] on 12/21/24 14:03 Results Reviewed Results Reviewed: Laboratory Last Values Urine pH (Auto) 6.0 12/21/24 14:02 Specific [place] (Auto) 1.015 12/21/24 14:02 Urine Protein (Auto) 0 mg/dL 12/21/24 14:02 Glucose (UA)(Auto) 0 mg/dL 12/21/24 14:02 Urine Ketones (Auto) Negative 12/21/24 14:02 Urine Blood (Auto) 0 Elvis/uL 12/21/24 14:02 Urine Nitrite (Auto) Negative 12/21/24 14:02 Urine Bilirubin (Auto) 0 mg/dL 12/21/24 14:02 Urine Urobilinogen (Auto) 0.2 mg/dL 12/21/24 14:02 Leukocyte Esterase (Auto) 0 Logan/uL 12/21/24 14:02 Assessment & Plan Assessment & Plan Orders: Orders AMB Urinalysis Automated Today Z13.9 - Encounter for screening, unspecified Coding CPT Codes Post Residual Void - PVR CPT Code: 99733-Zxgh Void Residual by ultrasound ([id number])
== END 2024-12-21 14:31 | disposition home or self-care (01) ==
PROVIDERS: PCP Internal Medicine; Visit Provider Urology
DX: Z13.9 Encounter for screening, unspecified (principal)

== ENCOUNTER → 2024-12-21 13:50 | Outpatient (BNVA) | payer OTHER, SELFPAY | PROVIDERS: PCP Internal Medicine; Visit Provider Urology | DX: N40.1 Benign prostatic hyperplasia with lower urinary tract symptoms (principal); N13.8 Other obstructive and reflux uropathy; N43.3 Hydrocele, unspecified; N52.8 Other male erectile dysfunction | CPT/HCPCS: 51798; 81003 ==

== ENCOUNTER 2025-05-18 16:08 | Outpatient (AMB) | payer OTHER, SELFPAY ==
--- NOTE | 2025-05-18 16:12 | MHC.PC.OV ---
Vital Signs 05/18/25 16:14 Height 5 ft 10 in Weight 252 lb BMI 36.2 BP 124/72 Blood Pressure Location Lt brachial Position Sitting Intake Visit Reasons: annual pe Intake Note: Patient here for a physical exam Rectangular Tank Cooper Required: No Accompanied by: Self / Same As Patient Allergies No Known Allergies (No Known Allergies*) Allergy (Verified 05/18/25 16:50) Medication List - Last Reconciled 05/18/25 by Caroline Wilson MD bisacodyl (Dulcolax (bisacodyl)) 20 mg (4 x 5 mg) PO ONCE 1 day cholecalciferol (vitamin D3) 25 mcg PO DAILY 90 days hydroxychloroquine 200 mg PO BID meclizine (Dramamine Less Drowsy) 25 mg PO TID PRN polyethylene glycol 3350 (Miralax) 238 grams PO ONCE tadalafil 40 mg (2 x 20 mg) PO ONCE PRN 30 days tadalafil 10 mg PO DAILY 90 days tamsulosin 0.4 mg PO BEDTIME 90 days Tobacco use date assessed: 05/18/25 Dental Screening Dental Screen Date: 05/18/25 Did you have a dental visit in the last 12 months?: Yes Did you have a dental problem in the last 6 months where you did not have access to dental care?: No Was dental information given to patient?: Patient has dentist HPI HPI Comments History of Present Illness Details This is a 59 year old male with lupus and pancitopenia that comes for his physical exam. Colonoscopy done last year had hyperplastic and tubular adenoma polyp and was recommended to come again in 1 to 2 years and I will refer him through open access. Last Td vaccine was 2018 and next should be 2028. Lupus has been stable and follow by rheumatology. Pancitopenia has been follow by hematology/oncology. [facility] Medical History Erectile dysfunction Hypovitaminosis D Urine WBC increased Hypoglycemia Hydrocele in adult Lupus Malabsorption due to intolerance, not elsewhere classified Overweight (BMI 25.0-29.9) Arthritis Steatosis, liver Hypertension Morbid obesity Surgical History S/P urological surgery S/P laparoscopic sleeve gastrectomy History of colonoscopy H/O adenoidectomy Hx of tonsillectomy Family History Father No problems noted. Mother No problems noted. Maternal Aunt No problems noted. Brother No problems noted. Sister No problems noted. Social History Housing: Apartment Alcohol intake: never Patient Tobacco Use Status: Never used Tobacco e-Cigarette/Vaping Use: Never Used Second Hand Smoke Exposure: No service: No Current occupational status: unemployed Cognitive needs: No Hearing needs: No Vision needs: No Questionnaire PHQ-9 Over the last 2 weeks, how often have you been bothered by any of the following problems? 1. Little interest or pleasure in doing things: not at all 2. Feeling down, depressed, or hopeless: not at all 3. Trouble falling or staying asleep, or sleeping too much: not at all 4. Feeling tired or having little energy: not at all 5. Poor appetite or overeating: not at all 6. Feeling bad about yourself - or that you are a failure or have let yourself or your family down: not at all 7. Trouble concentrating on things, such as reading the newspaper or watching television: not at all 8. Moving or speaking so slowly that other people could have noticed. Or the opposite - being so fidgety or restless that you have been moving around a lot more than usual: not at all 9. Thoughts that you would be better off or of hurting yourself in some way: not at all Total score: 0 Depression Screening Interpretation: Negative Depression Screening Done: Yes 99763 - PHQ-9 Billing: Yes Source: Developed by Drs. Servando Grimes, Umm Helms, Anthony Heredia and colleagues, with an educational ebony from [employer]. Thrive Questionnaire Date Thrive assessed: 05/18/25 I am a: Patient What is your living situation today?: I have a steady place to live Within the past 12 months, did the food you bought not last and you didn't have the money to get more?: Never true Within the past 12 months, did you worry whether your food would run out before you got money to buy more?: Never true Do you have trouble paying for medicines?: No Do you have trouble getting transportation to medical appointments?: No Do you have trouble paying your heating and electricity bill?: No Do you have trouble taking care of your child, family member or friend?: No Do you have trouble with day-to-day activities such as bathing, preparing meals, shopping, managing finances, etc.?: No Are you currently unemployed and looking for a job?: No Are you interested in more education?: No Please select the resources that you would like help with: None Currently or been in a relationship where the following occur: No concerns reported THRIVE Score: 0 AUDIT C Alcohol Use Questionnaire (AUDIT-C) 1. How often do you have a drink containing alcohol?: Never Total Score: 0 PINO-7 AMB Questionnaire PINO-7 Date PINO - 7 assessed: 05/18/25 Feeling nervous, anxious, or on edge: 0 = Not at all Not being able to stop or control worryin = Not at all Worrying too much about different things: 0 = Not at all Trouble relaxin = Not at all Being so restless that it is hard to sit still: 0 = Not at all Becoming easily annoyed or irritable: 0 = Not at all Feeling afraid as if something awful might happen: 0 = Not at all Total PINO-7 score (0-4 normal; 5-9 mild; 10-14 moderate; 15-21 severe): 0 Source: Developed by Drs. Servando Grimes, Umm Helms, Anthony Heredia and colleagues, with an educational ebony from [employer]. PINO-7 Assessment Billing PINO-7 Assessment Tool: PINO-7 Assessment 51394 Review of Systems Const All systems reviewed & are unremarkable except as noted in HPI and below Card Denies chest pain at rest, Denies chest pain with activity, Denies edema, Denies irregular heart rhythm, Denies claudication, Denies dyspnea, Denies dyspnea on exertion, Denies orthopnea, Denies paroxysmal nocturnal dyspnea and Denies slow heart rate Resp Denies cough, Denies dyspnea and Denies dyspnea on exertion GI Denies abdominal pain, Denies change in bowel habits, Denies excessive flatus, Denies nausea and Denies vomiting Neuro Denies lack of coordination Physical exam (Primary Care) Vital Signs: Last Vital Signs BP 124/72 05/18/25 16:14 BMI result Body Mass Index 36.2 Tobacco/Smoking Status: Tobacco use Status Tobacco use date assessed 05/18/25 05/18/25 16:18 Patient Tobacco Use Status Never used Tobacco 05/18/25 16:18 e-Cigarette/Vaping Use Never Used 05/18/25 16:18 PHQ-9: PHQ-9 Score PHQ-9: Total score 0 05/18/25 16:52 Depression Screening Interpretation: Negative Thrive Assessment: Date of Thrive Assessment Date Thrive assessed 05/18/25 05/18/25 16:18 Currently or been in a relationship where the following occur: No concerns reported HENMT Head: Yes normal to inspection, Yes normocephalic and Yes atraumatic Ears: external ears normal Eyes General: appearance normal, both eyes and all related structures Eyelids: Yes eyelids normal Conjunctivae: conjunctivae normal Neck Neck: Yes normal visual inspection and Yes supple Resp Effort & Inspection: normal respiratory effort Auscultation: clear to auscultation bilaterally Cardio Jugular venous distension: no JVD Rate: regular rate Rhythm: regular rhythm Heart sounds: S1 normal heart sound present and S2 normal heart sound present GI Inspection: Yes normal to inspection Palpation (GI): Soft to palpation and nontender Auscultation: normal bowel sounds Skin General skin exam: no rashes or lesions noted Neuro General: no focal motor deficits Extrem General: Yes full ROM Psych Appearance: grossly normal Coding Level of Care Code Est Pt Prev Care 40-64y(75023) Diagnoses Physical exam Z00.00 Lupus M32.9 Pancytopenia D61.818 Additional Codes PINO-7 Assessment Billing - PINO-7 Assessment Tool: PINO-7 Assessment 36179 ([id number]) PHQ-9 - 22702 - PHQ-9 Billing: Yes ([id number]) Time Spent (min) 31 Assessment & Plan Assessment & Plan (1) Physical exam: Code(s): Z00.00 - Encounter for general adult medical examination without abnormal findings Category: Medical (2) Lupus: Code(s): M32.9 - Systemic lupus erythematosus, unspecified Category: Medical (3) Pancytopenia: Code(s): D61.818 - Other pancytopenia Category: Medical Plan Repeat in a year. Repeat colonoscopy. Follow up with rheumatology and hematology/oncology. Orders: Orders Vitamin D 25-OH Total Today E55.9 - Vitamin D deficiency, unspecified Lipid Panel Today Z00.00 - Encounter for general adult medical examination without abnormal findings Comprehensive [place]. Panel Fast Today Z00.00 - Encounter for general adult medical examination without abnormal findings Referrals Open Access Screening Colonoscopy Referral Z12.12 - Encounter for screening for malignant neoplasm of rectum
[2025-05-18 16:14] VITALS: BP 124/72; BMI 36.2
--- OUTSIDE RECORDS SUMMARY | 2025-05-18 18:04 | XMS_ITS | Data Portability ---
Author Organization [facility] Pain Managem ent, PAIN OFFICE Address [address],[facility] [address] [place] [address] Care Team Providers Care Resource Specialist Name Role Phone BURAK CHUN Referring Provider [phone] BRENT JOHNS Primary Care Provider Assessment Encounter Date Assessment Date Assessment LastModified by Organization Details LastModified Time 12/15/2015 12/15/2015 Yasmeen Lopes is a 50 year old man with complaints of low back pain radiating into both lower extremities. On exam, he has pain on flexion. He has no recent imaging studies. I recommend a coyrse of physical therapy for his low back pain. If pain persists after PT, I recommend a MRI Lumbar spine. We also discussed the importance of weight loss, core strengthening for improvement of his low back. [email or web address] Not available 12/28/2015 10:23:44 Plan of Treatment Reminders Order Date Submit Date Provider Last Modified By Organization Details Last Modified Time Details Appointments None recorded. Lab None recorded. Referral physical therapist referral - Please evaluate and treat. 2015 016 [email or web address] Not available 6 08:38:16 Procedures None recorded. Surgeries None recorded. Imaging None recorded. Medication Orders None recorded. Patient TargetsNo targets recorded. Patient Instructions Encounter Date Encounter Id Patient Instructions Last Modified By Organization Details Last Modified Time 12/15/2015 [id number] He was advised against bed rest lasting longer than four days and to continue activities as tolerated. [email or web address] Not available 12/28/2015 10:23:44 Reason for Referral Please evaluate and treat. Referring Physician: Holly Kraft, Pain Management, Encounter Date: 12/15/2015 Problems Name Problem SNOMED Code Status Onset Date Resolution Date Notes Provider Name and Address Organization Details Recorded Time Displacement of lumbar intervertebral disc without myelopathy 20020906 Active Holly neely MD [address] , [address], [place], [address], [place] [facility] 6 13:22:41 Muscle pain 23050373 Active Holly neely MD [address] , [address], [place], [address], [place] [facility] 6 13:22:41 Lumbosacral radiculitis 27097187 Active Holly neely MD [address] , [address], [place], [address], [place] [facility] 6 13:23:33 Problem Notes None recorded. Procedures Surgical History Date Name Laterality Status Provider Name and Address Organization Details Recorded Time Tonsillectomy completed Ofelia Hardy [place] - [facility] 12/15/2015 10:17:36 Other completed Ofelia Hardy [place] - [facility] 12/15/2015 10:17:36 Imaging Results None recorded. Procedure Notes None recorded. Medical Equipment None Reported. Allergies No known drug allergies Medications Name Sig Start Date Stop Date Status Note LastModified by Organization Details LastModified Time metformin 500 mg tablet TAKE 1 TABLET BY MOUTH TWICE A DAY WITH MEALS active Not Available Not Available No t Available FreeStyle Lancets 28 gauge USE DIRECTED TWICE A DAY active Not Available Not Available No t Available oxycodone-acet aminophen 5 mg-325 mg tablet TAKE 1 TABLET EVERY 6 HOURS NEEDED FOR PAIN active Not Available Not Available No t Available lisinopril 5 mg tablet TAKE 1 TABLET BY MOUTH EVERY DAY active Not Available Not Available No t Available ergocalciferol (vitamin D2) 1,250 mcg (50,000 unit) capsule TAKE 1 TABLET WEEKLY FOR 8 WEEKS active Not Available Not Available No t Available naproxen 500 mg tablet TAKE 1 TABLET EVERY 12 HOURS NEEDED FOR PAIN active Not Available Not Available No t Available hydrochlorothi azide 12.5 mg tablet TAKE 1 TABLET BY MOUTH EVERY DAY active Not Available Not Available No t Available FreeStyle Lite Meter kit DIRECTED TWICE A DAY DX: 250.00 99 MONTHS active Not Available Not Available No t Available FreeStyle Lite Strips DIRECTED TWICE A DAY DX: 250.00 30 DAYS active Not Available Not Available No t Available Vitals Date Recorded Body weight Oxygen saturation Oxygen saturation in Arterial blood by Pulse oximetry Heart rate Body height Body mass index (BMI) Systolic blood pressure Diastolic blood pressure Provider Name and Address Organization Details Last Updated DateTime 6 543351. 18754 g 98 % 98 % 94 /min 177.8 cm 47.9 kg/m2 134 mm[Hg] 84 mm[Hg] Ofelia Hardy [place] - [facility] 6 10:17:36 Social History Question Answer Notes LastModified by Tradoria Details LastModified Time Tobacco Smoking Status Never Smoker Not Available [employer] 09/15/2020 03:16:11 Which Illicit Or Recreational Drugs Have You Used? No [id number] Information not available 09/15/2020 Education Post Graduate Masters In Education [email or web address] Information not available 12/15/2015 Live Alone Or With Others? Alone [place] [address] Information not available 12/15/2015 Marital Status Single [place] [address] Informatio n not available 12/15/2015 Sex: Unknown Functional Status Question Answer Note LastModified by Tradoria Details LastModified Time What is your level of alcohol consumption? None [id number] Information not available 09/15/2020 Are you currently employed? 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 Family History Nothing Reported. Medical History Condition Response Diabetes Y Arthritis Y Hypertension Y Past Encounters Encounter ID Performer Location Encounter Start Date Encounter Closed Date Diagnosis/Indication Diagnosis SNOMED-CT Code Diagnosis ICD10 Code Diagnosis Note [id number] Holly Kraft MD PAIN OFFICE [address] [place] [phone] 12/15/2015 09:45:35 12/28/2015 10:24:08 Displacement of lumbar intervertebral disc without myelopathy 92782563 M51.26 Lumbosacra l radiculitis 21977492 M54.17 Muscle pain 89518159 M79 .1 Health Concerns Section Related Observation LastModified by Organization Detai ls LastModified Time None Recorded Concern Status LastModified by Organization Details LastModified Time None Recorded Advance Directives Directive None Recorded Payers Insurance Date Sequence Insurance Name Policy Number Policy Gagnon Covered Member ID Gagnon Member ID Guarantor Name 12/06/2015 1 [facility] (MEDICAID HMO) Marianne Arana [id number] Yasmeen Lopes 12/12/2015 1 [employer] (MEDICAID HMO) [id number] Yasmeen Lopes [id number] Yasmeen Lopes 12/12/2015 2 [place] [facility] Yasmeen Lopes [id number] Yasmeen Lopes Notes Date Note Type Note Provider Name and Address Organization Details Recorded Time 12/15/2015 text/html Pain Management L-spineReported bypatient.Location: Yasmeen Lopes is a 50 year old man with complaints of low back pain radiating into both lower extremities. The pain has been present for years and is becoming progressively greater. Quality:throbbing;n umbess;burning;achi ng;sharp;tingling; He describes the pain in his back as a sharp stabbing pain which radiates into his lower extremities. The pain in his legs is burning in nature and is associated with numbness and tingling. Severity:current pain level 7/10; worst pain 10/10;worsening Duration:constant Onset/Timing:gradua l onset; chronic Context:cannot identify Alleviating Factors:rest; lying down Aggravating Factors:standing; walking Associated Symptoms:no weakness; no bladder compromise; no bowel compromise;numbness Radiation:bilateral LE Work Related:no ADL (Activities of Daily Living):walking; sweeping; mopping Prior Imaging:none; He had Xrays of his hips done at [facility] which showed no arthritis. Prior EMG:none Previous Surgerynone Previous Injections:none Previous PT:none Previous healthcare corporate account director:none Holly Kraft MD [facility] [address], [place], [address], [facility] 12/28/2015 11:20:27
== END 2025-05-18 17:03 | disposition home or self-care (01) ==
LOC: HO.HMCH 16:08
PROVIDERS: PCP Internal Medicine; Visit Provider Internal Medicine
DX: Z00.00 Encounter for general adult medical examination without abnormal findings (principal); M32.9 Systemic lupus erythematosus, unspecified; D61.818 Other pancytopenia

== ENCOUNTER → 2025-05-18 16:08 | Outpatient (BNVA) | payer OTHER, SELFPAY | PROVIDERS: PCP Internal Medicine; Visit Provider Internal Medicine | DX: Z00.00 Encounter for general adult medical examination without abnormal findings (principal); D61.818 Other pancytopenia; M32.9 Systemic lupus erythematosus, unspecified; Z86.0101 Personal history of adenomatous and serrated colon polyps | CPT/HCPCS: 96127 ==

== ENCOUNTER 2025-06-29 09:14 | Outpatient (AMB) | payer OTHER, SELFPAY ==
--- NOTE | 2025-06-29 09:14 | MHC.OFFVIS ---
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 He is a patient of . He is seen for the following urologic conditions - lower urinary tract symptoms - erectile dysfunction Six-month follow-up Telemedicine Evaluation 15 min Consultation [employer] [facility] Video ED with high-dose tadalafil protocol Has continue with 10 mg daily and 40 mg on demand Refill provided Lower urinary tract symptoms Progressive Mostly weakness of stream Responds well to tamsulosin Erectile dysfunction Progressive Less ability to obtain erection firm enough for penetration Failed sildenafil in the past, prior 20 mg tadalafil on demand Labs - 12/23 T 907 FT 71 P 0.3, 07/24 P 0.27 Therapeutic plan daily medium dose with on demand tadalafil and use of vacuum pump [facility] Medical History Erectile dysfunction Hypovitaminosis D Urine WBC increased Hypoglycemia Hydrocele in adult Lupus Malabsorption due to intolerance, not elsewhere classified Overweight (BMI 25.0-29.9) Arthritis Steatosis, liver Hypertension Morbid obesity Surgical History S/P urological surgery S/P laparoscopic sleeve gastrectomy History of colonoscopy H/O adenoidectomy Hx of tonsillectomy Family History Father No problems noted. Mother No problems noted. Maternal Aunt No problems noted. Brother No problems noted. Sister No problems noted. Social History Housing: Apartment Alcohol intake: never Patient Tobacco Use Status: Never used Tobacco e-Cigarette/Vaping Use: Never Used Second Hand Smoke Exposure: No service: No Current occupational status: unemployed Cognitive needs: No Hearing needs: No Vision needs: No Review of Systems Const All systems reviewed & are unremarkable except as noted in HPI and below Reports no additional complaints Resp Reports no additional complaints GI Reports no additional complaints Reports as per HPI Musc Reports no additional complaints Physical Exam Telemedicine evaluation Appropriate responses Regular breathing rate and rhythm Const General: cooperative, healthy appearing, comfortable and no acute distress Orientation/consciousness: patient oriented x3 HEENT Head: Yes normal to inspection Ears: hearing grossly normal bilaterally Face and sinus: Yes normal facial exam Mouth: moist mucous membranes Eyes General: appearance normal, both eyes and all related structures Neck Neck: Yes normal visual inspection, Yes full ROM and Yes trachea midline Chest Chest palpation & inspection: normal inspection of the chest Resp Effort & Inspection: normal respiratory effort, able to speak in complete sentences and no respiratory distress GI Inspection: Yes normal to inspection Back/Spine/Pelvis Cervical Spine: normal cervical lordosis Thoracic/Lumbar Spine: thoracic and lumbar spine normal to inspection Skin General skin exam: no rashes or lesions noted Neuro General: patient oriented x3, gait normal, tone normal and moves all extremities Extrem General: Yes normal to inspection and Yes capillary refill normal Telehealth Telehealth Telehealth Platform: [employer] Location of provider rendering services: practice address Location of patient: address on file Patient Identification confirmed using: Name, : Yes Telehealth method: video Patient verbally consented to treatment: Yes Patient verbally consented to billing insurance company: Yes Patient informed of any privacy concerns related to visit: Yes Minutes spent on Phone/Video with Pt.: 15 Assessment & Plan Assessment & Plan (1) Erectile dysfunction: Code(s): N52.9 - Male erectile dysfunction, unspecified Category: Medical Qualifiers: Erectile dysfunction type: due to other cause Qualified Code(s): N52.8 - Other male erectile dysfunction (2) BPH loc w urin obs/LUTS: Code(s): N40.1 - Benign prostatic hyperplasia with lower urinary tract symptoms Category: Medical Plan Continue high-dose therapy Medications: Refilled tadalafil 10 mg PO DAILY 90 tabs 1RF 90 days N40.1 - Benign prostatic hyperplasia with lower urinary tract symptoms Patient Instructions: This note is constructed using voice recognition software. While every effort has been made to ensure accuracy fountain operator errors may have been included. Imaging studies, laboratory and physical exam results were discussed and reviewed in detail. No major barriers to patient understanding were identified. An opportunity to ask questions regarding the treatment plan was provided. All questions were answered. The patient expressed understanding and agreement with the above treatment plan. The patient is aware they should contact our office by phone for worsening of their current condition or the appearance of new urologic symptoms. Compliance is encouraged with any medications and followup testing that is ordered. It is a privilege to participate in the urologic care of your patient. If you have any questions or concerns regarding treatment for the above conditions, or other urologic issues, please do not hesitate to contact me. The office telephone contact is [phone]. Sincerely, Dr Remi Castro MD, [facility] - Urology Compassionate Specialist Care for the Genitourinary System Coding Level of Care Code Tele Est Pt Level 3 (63701) Complex EM visit Add On G2211 Diagnoses Other male erectile dysfunction N52.8 Erectile dysfunction type: due to other cause BPH loc w urin obs/LUTS N40.1
== END 2025-06-29 10:26 | disposition home or self-care (01) ==
LOC: HO.HUSH 09:14
PROVIDERS: PCP Internal Medicine; Visit Provider Urology
DX: N52.8 Other male erectile dysfunction (principal); N40.1 Benign prostatic hyperplasia with lower urinary tract symptoms
CPT/HCPCS: 99213

== ENCOUNTER 2025-11-28 09:40 | Outpatient (REF) | payer OTHER, SELFPAY ==
[2025-11-28 10:51] LABS: Prostate Specific Antigen 0.32 ng/mL (<0.05-4.0)
== END 2025-11-28 09:41 | disposition home or self-care (01) ==
LOC: HO.LAB 09:40
PROVIDERS: PCP Internal Medicine; Visit Provider Urology
DX: N40.1 Benign prostatic hyperplasia with lower urinary tract symptoms (principal); Z12.5 Encounter for screening for malignant neoplasm of prostate
CPT/HCPCS: 36415; 84153